=== PATIENT | female | born 1975 | race African-American/Black ===

== ENCOUNTER 2017-05-19 22:43 | Emergency (ER) | payer OTHER, SELFPAY ==
[2017-05-19 23:04] LABS: #Basophils 0.2 thou/uL (0.0-0.2); #Eosinphils 0.1 thou/uL (0.0-0.7); #Lymphocytes 2.8 thou/uL (1.20-3.40); #Monocytes 0.3 thou/uL (0.11-0.59); #Neutrophils 5.5 thou/uL (1.40-6.50); %Basophils 2.2 % (0.0-1.0); %Eosinophils 1.6 % (0.0-10.0); %Lymphocytes 30.8 % (21.0-51.0); %Monocytes 3.7 % (0.0-10.0); Hematocrit 37.2 % (36.0-47.0); Mean Platelet Volume 8.6 fL (7.4-10.4); Red Blood Cell (RBC) Count 4.26 mill/uL (4.20-5.40); White Blood Cell (WBC) Count 8.9 thou/uL (4.8-10.8)
[2017-05-19] MEDS ORDERED: methylPREDNISolone Sod Succ/PF 125 MG/2 ML VIAL ONE (23:06)
[2017-05-19] MEDS ORDERED: diphenhydrAMINE 50 MG/ML VIAL ONE (23:06)
[2017-05-19] MEDS ORDERED: Ketorolac Tromethamine 30 MG/ML VIAL ONE (23:06)
[2017-05-19] MEDS ORDERED: Metoclopramide HCl 10 MG/2 ML VIAL ONE (23:06)
[2017-05-19] MEDS ORDERED: Water For Inject, Bacteriostat 30 ML ONE (23:06)
[2017-05-19 23:18] LABS: ALT (SGPT) 11 U/L (8-55); AST (SGOT) 12 U/L (5-34); Alkaline Phosphatase 108 U/L (40-150); Anion Gap 13 mmol/L (10-20); BUN (Urea Nitrogen) 6 mg/dL (7.0-18.7); Bilirubin, Total 0.1 mg/dL (0.2-1.2); Calc. Creatinine Clearance 0 mL/min (70-130); Calcium 9.7 mg/dL (7.8-10.44); Carbon Dioxide 23 mmol/L (22-29); Chloride 106 mmol/L (98-107); Estimated GFR-MDRD 82; Globulin 4.1 g/dL (2.4-3.5)
[2017-05-19 23:25] LABS: Troponin I Less than 0.010 ng/mL (< 0.028)
== END 2017-05-20 00:30 | disposition home or self-care (01) ==
LOC: SCSER 22:43
DX: R51 Headache (principal); I10 Essential (primary) hypertension; E11.9 Type 2 diabetes mellitus without complications; E78.5 Hyperlipidemia, unspecified; F17.210 Nicotine dependence, cigarettes, uncomplicated; Z79.84 Long term (current) use of oral hypoglycemic drugs; Z79.82 Long term (current) use of aspirin; Z79.899 Other long term (current) drug therapy
CPT/HCPCS: 80053; 82553; 84484; 85025; 93005; 96365; 96375; J1200; J1885; J2765; J2930

== ENCOUNTER 2017-09-22 20:26 | Emergency (ER) | payer OTHER, SELFPAY ==
[2017-09-22 20:48] LABS: Bilirubin Small (Negative); Blood, Urine Trace (Negative); Clarity Cloudy (Clear); Glucose, Urine (Dipstick) Negative (Negative); Leukocyte Small (Negative); Nitrite Negative (Negative); Protein, Urine (Dipstick) 30 mg/dL (Neg-Trace); Specific Gravity, Urine 1.029 (1.002-1.036); pH, Urine 5.5 (5.0-9.0)
[2017-09-22 20:52] LABS: RBC/HPF 0-3 HPF (0-3)
[2017-09-22 20:53] LABS: Bacteria/HPF 2+ HPF (None Seen); Hyaline Casts/LPF 0-3 HYALINE CAST LPF (0-3 Hyaline); Other Casts/LPF 0-3 WBC CASTS LPF (0-3 Hyaline); Yeast-All Forms Rare HPF (None Seen)
== END 2017-09-22 22:00 | disposition home or self-care (01) ==
LOC: SCSER 20:26
DX: O20.0 Threatened abortion (principal); O09.511 Supervision of elderly primigravida, first trimester; O10.911 Unspecified pre-existing hypertension complicating pregnancy, first trimester; O24.111 Pre-existing type 2 diabetes mellitus, in pregnancy, first trimester; O99.331 Smoking (tobacco) complicating pregnancy, first trimester; O99.281 Endocrine, nutritional and metabolic diseases complicating pregnancy, first trimester; O99.341 Other mental disorders complicating pregnancy, first trimester; F32.9 Major depressive disorder, single episode, unspecified; Z79.84 Long term (current) use of oral hypoglycemic drugs; Z3A.01 Less than 8 weeks gestation of pregnancy; Z79.899 Other long term (current) drug therapy; Z79.82 Long term (current) use of aspirin
CPT/HCPCS: 36415; 81003; 81015; 84702; 86900; 86901; 99284

== ENCOUNTER 2017-09-28 08:06 | Emergency (ER) | payer OTHER ==
[2017-09-28 08:31] LABS: #Eosinphils 0.1 thou/uL (0.0-0.7); #Lymphocytes 2.8 thou/uL (1.20-3.40); #Monocytes 0.4 thou/uL (0.11-0.59); #Neutrophils 3.4 thou/uL (1.40-6.50); %Basophils 0.4 % (0.0-1.0); %Eosinophils 1.6 % (0.0-10.0); %Lymphocytes 41.8 % (21.0-51.0); %Monocytes 5.6 % (0.0-10.0); %Neutrophils 50.6 % (42.0-75.0); Hemoglobin 11.3 g/dL (12.0-16.0); Mean Corpuscular HGB CONC 31.5 g/dL (32.0-36.0); Mean Corpuscular Hemoglobin 26.2 pg (27.0-31.0); Mean Platelet Volume 8.5 fL (7.4-10.4); Platelet Count 266 thou/uL (130-400); RBC Distribution Width 17.6 % (11.5-14.5); Red Blood Cell (RBC) Count 4.32 mill/uL (4.20-5.40); White Blood Cell (WBC) Count 6.8 thou/uL (4.8-10.8)
--- NOTE | 2017-09-28 09:58 | ULT ---
TRANSVAGINAL PELVIC ULTRASOUND WITH WILLIAM SCALE AND COLOR FLOW AND SPECTRAL DOPPLER: Date: 09/28/17 HISTORY: Heavy vaginal bleeding. Patient thinks she is . HCG levels pending. FINDINGS: The uterus measures 10.6 x 4.9 x 4.5 cm without focal mass or endometrial fluid. Endometrium measures 6.0 mm in thickness. No intrauterine gestational sac is seen. A nabothian cyst is present in the cer vix. The right ovary measures 2.5 x 1.4 x 1.5 cm. The left ovary measures 3.0 x 2.5 x 2.0 cm. No adnexal m ass or free fluid is seen. There is flow demonstrated to the left ovary. IMPRESSION: No sonographic evidence of intrauterine gestation. Correlate with serial serum beta HCG and follow-up ultrasound would be helpful. POS: OFF
== END 2017-09-28 09:52 | disposition home or self-care (01) ==
LOC: ERS 08:06
DX: O20.0 Threatened abortion (principal); O09.521 Supervision of elderly multigravida, first trimester; O99.281 Endocrine, nutritional and metabolic diseases complicating pregnancy, first trimester; E78.5 Hyperlipidemia, unspecified; O16.1 Unspecified maternal hypertension, first trimester; O99.341 Other mental disorders complicating pregnancy, first trimester; F32.9 Major depressive disorder, single episode, unspecified; O99.331 Smoking (tobacco) complicating pregnancy, first trimester; F17.210 Nicotine dependence, cigarettes, uncomplicated; O24.111 Pre-existing type 2 diabetes mellitus, in pregnancy, first trimester; E11.9 Type 2 diabetes mellitus without complications; Z3A.01 Less than 8 weeks gestation of pregnancy
CPT/HCPCS: 36415; 76856; 84702; 85025

== ENCOUNTER 2017-11-24 08:19 | Emergency (ER) | payer OTHER ==
[2017-11-24 08:43] LABS: Bilirubin Small (Negative); Blood, Urine Large (Negative); Clarity TURBID (Clear); Glucose, Urine (Dipstick) Negative (Negative); Leukocyte Small (Negative); Nitrite Negative (Negative); Protein, Urine (Dipstick) 100 mg/dL (Neg-Trace); Specific Gravity, Urine 1.035 (1.002-1.036); pH, Urine 5.5 (5.0-9.0)
[2017-11-24 08:43] LABS: #Basophils 0.1 thou/uL (0.0-0.2); #Eosinphils 0.1 thou/uL (0.0-0.7); #Lymphocytes 2.6 thou/uL (1.20-3.40); #Monocytes 0.2 thou/uL (0.11-0.59); #Neutrophils 2.9 thou/uL (1.40-6.50); %Basophils 1.1 % (0.0-1.0); %Monocytes 3.9 % (0.0-10.0); Hemoglobin 11.9 g/dL (12.0-16.0); Mean Corpuscular HGB CONC 31.7 g/dL (32.0-36.0); Mean Corpuscular Hemoglobin 27.2 pg (27.0-31.0); Mean Corpuscular Volume 85.5 fl (81.0-99.0); Mean Platelet Volume 8.8 fL (7.4-10.4); Platelet Count 266 thou/uL (130-400); RBC Distribution Width 16.8 % (11.5-14.5); Red Blood Cell (RBC) Count 4.39 mill/uL (4.20-5.40); White Blood Cell (WBC) Count 5.9 thou/uL (4.8-10.8)
[2017-11-24 08:44] LABS: Pregnancy Test - Urine (BHCG) Negative (Negative); Pregu Control Background? CLEAR/WHITE (CLR/WHITE); Pregu Control Bar Appear? YES (CONTROL BAR); Specific Gravity 1.035 (1.002-1.036)
[2017-11-24 08:45] LABS: Bacteria/HPF Rare-Few HPF (None Seen); RBC/HPF GREATER THAN 50-TNTC HPF (0-3)
[2017-11-24 08:57] LABS: Pathc Cast-AUWi Flag 6.97 (0-2.49)
[2017-11-24 09:01] LABS: Hyaline Casts/LPF 0-3 HYALINE CAST LPF (0-3 Hyaline); Other Casts/LPF None Seen LPF (0-3 Hyaline)
[2017-11-24 09:09] LABS: ALT (SGPT) 7 U/L (8-55); AST (SGOT) 13 U/L (5-34); Albumin 3.8 g/dL (3.5-5.0); Alkaline Phosphatase 95 U/L (40-150); Anion Gap 10 mmol/L (10-20); BUN (Urea Nitrogen) 6 mg/dL (7.0-18.7); Bilirubin, Total 0.2 mg/dL (0.2-1.2); Calc. Creatinine Clearance 0 mL/min (70-130); Carbon Dioxide 23 mmol/L (22-29); Chloride 109 mmol/L (98-107); Estimated GFR-MDRD Greater than 90; Globulin 3.6 g/dL (2.4-3.5); Glucose 112 mg/dL (70-105); Lipase 28 U/L (8-78); Potassium 3.6 mmol/L (3.5-5.1); Protein, Total 7.4 g/dL (6.0-8.3); Sodium 138 mmol/L (136-145)
[2017-11-24] MEDS ORDERED: Ketorolac Tromethamine 60 MG/2 ML VIAL ONE (10:28)
[2017-11-27 21:55] LABS: Chlamydia by PCR Not Detected (NotDetected); GC by PCR Not Detected (NotDetected)
== END 2017-11-24 11:30 | disposition home or self-care (01) ==
LOC: ERS 08:19
DX: N39.0 Urinary tract infection, site not specified (principal); E11.9 Type 2 diabetes mellitus without complications; E78.5 Hyperlipidemia, unspecified; I10 Essential (primary) hypertension; F17.210 Nicotine dependence, cigarettes, uncomplicated; Z79.84 Long term (current) use of oral hypoglycemic drugs; Z79.899 Other long term (current) drug therapy
CPT/HCPCS: 36415; 80053; 81003; 81015; 81025; 83690; 85025; 87086; 87480; 87491; 87510; 87591; 87660; J1885

== ENCOUNTER 2017-11-25 03:59 | Emergency (ER) | payer OTHER ==
[2017-11-25] MEDS ORDERED: cefTRIAXone\\ROCEPHIN 1 GM VIAL ONE (04:39)
[2017-11-25] MEDS ORDERED: Sodium Chloride 0.9% 100 ML ONE (04:39)
[2017-11-25 04:57] LABS: ALT (SGPT) 7 U/L (8-55); AST (SGOT) 12 U/L (5-34); Albumin 3.8 g/dL (3.5-5.0); Alkaline Phosphatase 103 U/L (40-150); Anion Gap 11 mmol/L (10-20); BUN (Urea Nitrogen) 9 mg/dL (7.0-18.7); Bilirubin, Total 0.2 mg/dL (0.2-1.2); Calc. Creatinine Clearance 0 mL/min (70-130); Carbon Dioxide 23 mmol/L (22-29); Chloride 110 mmol/L (98-107); Estimated GFR-MDRD 81; Globulin 3.6 g/dL (2.4-3.5); Glucose 114 mg/dL (70-105); Potassium 3.9 mmol/L (3.5-5.1); Protein, Total 7.4 g/dL (6.0-8.3); Sodium 140 mmol/L (136-145)
[2017-11-25 05:12] LABS: #Basophils 0.1 thou/uL (0.0-0.2); #Eosinphils 0.2 thou/uL (0.0-0.7); #Lymphocytes 3.3 thou/uL (1.20-3.40); #Monocytes 0.3 thou/uL (0.11-0.59); %Basophils 0.9 % (0.0-1.0); %Eosinophils 2.5 % (0.0-10.0); %Lymphocytes 41.5 % (21.0-51.0); %Monocytes 4.1 % (0.0-10.0); Hemoglobin 12.2 g/dL (12.0-16.0); Mean Corpuscular HGB CONC 31.9 g/dL (32.0-36.0); Mean Corpuscular Hemoglobin 27.5 pg (27.0-31.0); Mean Corpuscular Volume 86.4 fl (81.0-99.0); Platelet Count 277 thou/uL (130-400); RBC Distribution Width 16.9 % (11.5-14.5); Red Blood Cell (RBC) Count 4.43 mill/uL (4.20-5.40); White Blood Cell (WBC) Count 7.9 thou/uL (4.8-10.8)
[2017-11-25] MEDS ORDERED: Azithromycin 500 MG VIAL ONE (05:32)
[2017-11-25 05:34] LABS: Bilirubin Negative (Negative); Blood, Urine Negative (Negative); Clarity CLEAR (Clear); Glucose, Urine (Dipstick) Negative (Negative); Leukocyte Negative (Negative); Nitrite Negative (Negative); Protein, Urine (Dipstick) Negative (Neg-Trace); Urobilinogen 0.2 mg/dL (0.2-1.0); pH, Urine 5.5 (5.0-9.0)
[2017-11-25 05:38] LABS: Specific Gravity, Urine Greater than 1.060 (1.002-1.036)
--- NOTE | 2017-11-25 07:36 | CT ---
PRELIMINARY REPORT/[facility]/EMERGENCY AFTER HOURS PROCEDURE: EXAM: CT Abdomen and Pelvis With Intravenous Contrast EXAM DATE/TIME: Exam ordered 11/25/2017 4:38 AM CLINICAL HISTORY: 42 years old, female; Pain; Abdominal pain; Localized; Lower; Patient HX: , F42 presents to ed C/O pe lvic pain. Pt seen in ed yesterday for similar pain. Dx uti at that time. Pt reports pain is now wors e. Pain radiates to her back. Denies fever, . No other complaints. TECHNIQUE: Axial computed tomography images of the abdomen and pelvis with intravenous contrast. Coronal reforma tted images were created and reviewed. COMPARISON: No relevant prior studies available. FINDINGS: Lung bases: Unremarkable. No mass. No consolidation. ABDOMEN: Liver: Unremarkable. No mass. Gallbladder and bile ducts: Unremarkable. No calcified stones. No ductal dilation. Pancreas: Unremarkable. No mass. No ductal dilation. Spleen: Unremarkable. No splenomegaly. Adrenals: Unremarkable. No mass. Kidneys and ureters: Unremarkable. No solid mass. No hydronephrosis. Stomach and bowel: No bowel wall thickening or intestinal obstruction. PELVIS: Appendix: Normal appendix. Bladder: Unremarkable. No mass. Reproductive: Unremarkable as visualized. ABDOMEN and PELVIS: Intraperitoneal space: Unremarkable. No free air. No significant fluid collection. Bones/joints: No acute fracture. No dislocation. Soft tissues: Unremarkable. Vasculature: Unremarkable. No abdominal aortic aneurysm. Lymph nodes: Unremarkable. No enlarged lymph nodes. IMPRESSION: No acute findings. Thank you for allowing us to participate in the care of your patient. Dictated and Authenticated by: Clay Atkins MD 11/25/2017 5:20 AM Central Time ([place] & [place]) FINAL REPORT EMERGENCY AFTER HOURS ABDOMEN AND PELVIC CT SCAN WITH IV CONTRAST: Date: 11/25/17 Time: 0439 hours FINDINGS/IMPRESSION: Too small to characterize right lower pole hypodensity, probably a small renal cyst. No significant a cute process in the abdomen or pelvis. Report in agreement with preliminary report given on-call by Tiffanie. POS: VIKI
[2017-11-25] MEDS ORDERED: ISOVUE-370 76%-LOCM 1 ML ONE (18:34)
== END 2017-11-25 06:57 | disposition home or self-care (01) ==
LOC: ERS 03:59
DX: N39.0 Urinary tract infection, site not specified (principal); E11.9 Type 2 diabetes mellitus without complications; E78.5 Hyperlipidemia, unspecified; I10 Essential (primary) hypertension; F32.9 Major depressive disorder, single episode, unspecified; F17.210 Nicotine dependence, cigarettes, uncomplicated; Z79.899 Other long term (current) drug therapy; Z79.84 Long term (current) use of oral hypoglycemic drugs
CPT/HCPCS: 36415; 51701; 74177; 80053; 81003; 81015; 81025; 83690; 85025; 87086; 87480; 87491; 87510; 87591; 87660; 96365; 96367; 96372; A4353; J0456; J0696; J1885; J7050

== ENCOUNTER 2017-11-29 14:53 | Emergency (ER) | payer OTHER ==
--- NOTE | 2017-11-29 16:02 | CT ---
CT CERVICAL SPINE NONCONTRAST: 11/29/17 HISTORY: Neck injury. COMPARISON: 10/27/11. FINDINGS: Vertebral body heights are maintained. There is reversal of the normal lordotic curvature on the sagi ttal reformatted images. Osteophytosis is prominent throughout the vertebral bodies and, to a lesser extent, within the facets. No acute fracture or dislocation. Cervicothoracic junction is intact. IMPRESSION: Degenerative changes cervical spine are pronounced for the patient's age. No acute osseous abnormalit ies are demonstrated. POS: VIKI
== END 2017-11-29 16:33 | disposition home or self-care (01) ==
LOC: ERS 14:53
DX: M25.511 Pain in right shoulder (principal); E11.9 Type 2 diabetes mellitus without complications; E78.5 Hyperlipidemia, unspecified; I10 Essential (primary) hypertension; F32.9 Major depressive disorder, single episode, unspecified; F17.210 Nicotine dependence, cigarettes, uncomplicated
CPT/HCPCS: 72125

== ENCOUNTER 2017-12-05 12:44 | Emergency (ER) | payer OTHER ==
[2017-12-05] MEDS ORDERED: Ketorolac Tromethamine 60 MG/2 ML VIAL ONE (13:19)
== END 2017-12-05 13:00 | disposition home or self-care (01) ==
LOC: ERS 12:44
DX: M25.511 Pain in right shoulder (principal); E11.9 Type 2 diabetes mellitus without complications; E78.5 Hyperlipidemia, unspecified; I10 Essential (primary) hypertension; F17.210 Nicotine dependence, cigarettes, uncomplicated; Z79.899 Other long term (current) drug therapy; Z79.84 Long term (current) use of oral hypoglycemic drugs
CPT/HCPCS: 96372; J1885

== ENCOUNTER 2018-05-11 08:50 | Emergency (ER) | payer OTHER ==
[2018-05-11 09:28] LABS: Bilirubin Negative (Negative); Blood, Urine Negative (Negative); Clarity TURBID (Clear); Glucose, Urine (Dipstick) Negative (Negative); Leukocyte Negative (Negative); Nitrite Negative (Negative); Protein, Urine (Dipstick) Negative (Neg-Trace); Specific Gravity, Urine 1.027 (1.002-1.036); Urobilinogen 0.2 mg/dL (0.2-1.0); pH, Urine 5.5 (5.0-9.0)
--- NOTE | 2018-05-11 11:36 | ULT ---
TRANSABDOMINAL AND TRANSVAGINAL PELVIC ULTRASOUND WITH WILLIAM SCALE AND COLOR FLOW AND SPECTRAL DOPPLER IMAGING: Date: 05/11/18 HISTORY: Pelvic pain. Positive test. FINDINGS: The uterus measures 9.9 x 5.1 x 5.5 cm. The endometrium measures 1.3 cm in thickness. No intrauterine gestational sac is seen. A 1.2 cm cyst is seen in the cervix. The right ovary measures 1.9 x 3.7 x 1.8 cm. The left ovary measures 1.9 x 2.4 x 1.8 cm. Flow is demo nstrated to both ovaries. There is a small amount of free fluid in the pelvis. There is a 7.0 mm hypoechoic area in the myometrium, likely a fibroid. IMPRESSION: No evidence of intrauterine gestation. Recommend correlation with serial serum beta HCG levels and fo llow-up ultrasound. POS: VIKI
== END 2018-05-11 11:38 | disposition home or self-care (01) ==
LOC: ERS 08:50
DX: O99.89 Other specified diseases and conditions complicating pregnancy, childbirth and the puerperium (principal); M54.5 Low back pain; O24.911 Unspecified diabetes mellitus in pregnancy, first trimester; O99.331 Smoking (tobacco) complicating pregnancy, first trimester; F17.210 Nicotine dependence, cigarettes, uncomplicated
CPT/HCPCS: 36415; 76856; 81003; 84702

== ENCOUNTER 2018-05-17 14:03 | Emergency (ER) | payer OTHER ==
[2018-05-17 14:24] LABS: Bilirubin Small (Negative); Blood, Urine Negative (Negative); Clarity Slightly Cloudy (Clear); Glucose, Urine (Dipstick) Negative (Negative); Leukocyte Negative (Negative); Nitrite Negative (Negative); Protein, Urine (Dipstick) Trace mg/dL (Neg-Trace); Specific Gravity, Urine 1.015 (1.005-1.030); pH, Urine Greater/Equal 9.0 (5.0-9.0)
[2018-05-17] MEDS ORDERED: Acetaminophen 500 MG TAB ONE (14:28)
== END 2018-05-17 15:11 | disposition home or self-care (01) ==
LOC: SCSER 14:03
DX: O99.89 Other specified diseases and conditions complicating pregnancy, childbirth and the puerperium (principal); R10.2 Pelvic and perineal pain; M54.6 Pain in thoracic spine; E78.5 Hyperlipidemia, unspecified; I10 Essential (primary) hypertension; F17.210 Nicotine dependence, cigarettes, uncomplicated; Z79.84 Long term (current) use of oral hypoglycemic drugs
CPT/HCPCS: 36415; 81003; 84702; 99284

== ENCOUNTER 2018-05-18 23:06 | Emergency (ER) | payer OTHER ==
[2018-05-18 23:43] LABS: Bilirubin Negative (Negative); Blood, Urine Negative (Negative); Clarity CLOUDY (Clear); Glucose, Urine (Dipstick) Negative (Negative); Leukocyte Negative (Negative); Nitrite Negative (Negative); Protein, Urine (Dipstick) Negative (Neg-Trace); Specific Gravity, Urine 1.014 (1.002-1.036)
[2018-05-18] MEDS ORDERED: Acetaminophen 500 MG TAB ONE (23:51)
[2018-05-19 00:15] LABS: #Basophils 0.1 thou/uL (0.0-0.2); #Eosinphils 0.1 thou/uL (0.0-0.7); #Monocytes 0.4 thou/uL (0.11-0.59); %Basophils 0.6 % (0.0-1.0); %Eosinophils 1.4 % (0.0-10.0); %Lymphocytes 34.7 % (21.0-51.0); %Monocytes 4.4 % (0.0-10.0); %Neutrophils 58.9 % (42.0-75.0); Hemoglobin 11.9 g/dL (12.0-16.0); Mean Corpuscular HGB CONC 32.5 g/dL (32.0-36.0); Mean Corpuscular Hemoglobin 28.2 pg (27.0-31.0); Mean Corpuscular Volume 86.5 fL (78.0-98.0); Mean Platelet Volume 8.9 fL (7.4-10.4); Platelet Count 264 thou/uL (130-400); RBC Distribution Width 17.5 % (11.5-14.5); Red Blood Cell (RBC) Count 4.23 mill/uL (4.20-5.40); White Blood Cell (WBC) Count 8.5 thou/uL (4.8-10.8)
[2018-05-19 00:31] LABS: BHCG - Serum POSITIVE (NEGATIVE); Pregs Control Background? CLEAR/WHITE (CLR/WHITE); Pregs Control Bar Appear? YES (CONTROL BAR)
--- NOTE | 2018-05-19 08:15 | CON ---
DATE OF CONSULTATION: 05/19/2018 CONSULTING PHYSICIAN: Juan Guerra M.D. CHIEF COMPLAINT: Right-sided abdominal pain over the last 24 hours. HISTORY OF PRESENT ILLNESS: Ms. Martínez is a 43-year-old black G3, P0, AB2 with an uncertain last menstrual period, who presents complaining of right-sided abdominal discomfort over the last 24 hours. She denies bleeding or nausea or vomiting. Patient states that she did have 1 visit approximately a week ago at [facility] and was known to be at that time. She is uncertain regarding her last menstrual period. PAST OBSTETRICAL HISTORY: Includes 2 early spontaneous miscarriages, neither of which required D and C. PAST MEDICAL HISTORY: Diabetes and hypertension. CURRENT MEDICATIONS: Metformin 500 mg b.i.d. and an unknown blood pressure medication which she does not know the name of. PAST SURGICAL HISTORY: Includes a LEEP. ALLERGIES: No known allergies. SOCIAL HISTORY: She smokes 1 pack of cigarettes per day. She denies drugs or alcohol use. FAMILY HISTORY: Unremarkable. REVIEW OF SYSTEMS: Positive for abdominal pain. She denies nausea, vomiting, fever, chills, shortness of breath. PHYSICAL EXAMINATION: VITAL SIGNS: Stable in ER. Her blood pressure while I was in her ER room was 130s/80s with a pulse in the 80s. ABDOMEN: Soft and flat. There is no guarding or rebound. PELVIC EXAMINATION: No vaginal bleeding seen. Bimanual exam is not performed. LABORATORY DATA: Hemoglobin and hematocrit 11.9 and 36 respectively, platelet count 264,000. Quantitative beta hCG is 6721. Ultrasound demonstrates a gestational sac in the extreme right cornual aspect of the uterus demonstrating crown rump length that correlates with 6 weeks 4 days and has a heart rate of 113 beats per minute. I did discuss this with Dr. Clay Atkins and he did agree that this was most concerning for a cornual ectopic. ASSESSMENT AND PLAN: Suspected cornual ectopic . PLAN: I explained in detail the nature of a cornual ectopic . I did ask to admit her and had an exploratory procedure planned in the morning to review the nature of this ectopic. The patient refused to sign the consent form , as she was desirous of a second opinion. She understands that there is no way to obtain a second opinion at [facility]. I urged her to stay and allow me to treat her, but unfortunately, she would not sign the consent form and she signed the AMA form and left the ER. She left the hospital with the full understanding that a cornual ectopic , if it ruptures, can be a life threatening event. ALMA
--- NOTE | 2018-05-19 15:48 | ULT ---
PRELIMINARY REPORT/[facility]/EMERGENTY AFTER-HOURS PROCEDURE Addendum created by Clay Atkins MD on 05/19/2018 1:07 AM Central Time ([place] & [place]) Findings discussed with TOI KLEIN MD and OB attending physician at time of interpretation. Initi al Report created on 05/19/2018 1:00 AM Central Time ([place] & [place]) US , Transvaginal EXAM DATE/TIME: 05/18/2018 11:58 PM CLINICAL HISTORY: 43 years old, female; Pain; Other: Back pain; Gestational age or lmp: 5-6wks; TECHNIQUE: Real-time transvaginal obstetrical ultrasound of the maternal pelvis and a first trimester with image documentation. Transvaginal imaging was used for better evaluation of the fetus and adnexa . COMPARISON: No relevant prior studies available. FINDINGS: Other findings: Ovaries are normal with normal Doppler signal. GESTATION: Gestation: At the extreme right cornual aspect of the uterus, there is a suboptimally visualized comp thelma structure which has the appearance of a gestational sac containing a pole. Pillow-rump lengt h correlates with estimated gestational age of 6 weeks 4 days. heart rate of 113 beats per teena te obtained while interrogating the pole. The appearance is most compatible with an interstitia l ectopic . Heart rate: See Gestation Finding. BIOMETRY: Estimated gestational age: See Gestation Finding. MATERNAL: Uterus: Normal endometrial stripe thickness. Intraperitoneal: Physiologic amount of free fluid in the pelvis. IMPRESSION: At the extreme right cornual aspect of the uterus, there is a suboptimally visualized complex structu re which has the appearance of a gestational sac containing a pole. Pillow-rump length correlate s with estimated gestational age of 6 weeks 4 days. heart rate of 113 beats per minute obtained while interrogating the pole. The appearance is very concerning for an interstitial ectopic pr egnancy. Thank you for allowing us to participate in the care of your patient. Dictated and Authenticated by: Clay Atkins MD 05/19/2018 1:00 AM Central Time ([place] & [place]) PELVIC ULTRASOUND INCLUDING TRANSVAGINAL AND VASCULAR DUPLEX WITH COLOR AND SPECTRAL DOPPLER IMAGING: EMERGENCY AFTER HOURS EXAM TIME: 12:20 a.m. DATE: 05/19/2018. FINDINGS: There is ectopic in the cornua region of the uterus with crown-rump length corresponding to 6 weeks 4 days as well as a heart rate of 113 b.p.m., evidence for an interstitial ectopic pre gnancy. No evidence for ovarian torsion. POS: VIKI
== END 2018-05-19 02:05 | disposition left against medical advice (07) ==
LOC: ERS 23:06
DX: O00.80 Other ectopic pregnancy without intrauterine pregnancy (principal); E11.9 Type 2 diabetes mellitus without complications; E78.5 Hyperlipidemia, unspecified; I10 Essential (primary) hypertension; F17.210 Nicotine dependence, cigarettes, uncomplicated; Z3A.01 Less than 8 weeks gestation of pregnancy
CPT/HCPCS: 76856; 81003; 84702; 84703; 85025

== ENCOUNTER 2018-05-19 09:07 | Inpatient (IN) | payer OTHER ==
[2018-05-19 10:12] LABS: #Basophils 0.1 thou/uL (0.0-0.2); #Eosinphils 0.1 thou/uL (0.0-0.7); #Lymphocytes 2.7 thou/uL (1.20-3.40); #Monocytes 0.3 thou/uL (0.11-0.59); #Neutrophils 4.7 thou/uL (1.40-6.50); %Basophils 1.4 % (0.0-1.0); %Eosinophils 1.6 % (0.0-10.0); %Lymphocytes 33.6 % (21.0-51.0); %Monocytes 4.1 % (0.0-10.0); %Neutrophils 59.3 % (42.0-75.0); Hemoglobin 11.7 g/dL (12.0-16.0); Mean Corpuscular HGB CONC 32.2 g/dL (32.0-36.0); Mean Corpuscular Volume 86.9 fL (78.0-98.0); Mean Platelet Volume 8.6 fL (7.4-10.4); Platelet Count 251 thou/uL (130-400); RBC Distribution Width 17.5 % (11.5-14.5); White Blood Cell (WBC) Count 7.9 thou/uL (4.8-10.8)
[2018-05-19] MEDS ORDERED: CEFAZOLIN 1 GM in Sodium Chloride 0.9% 100 ML IVPB SCH (10:30)
[2018-05-19 10:36] LABS: ALT (SGPT) 17 U/L (8-55); AST (SGOT) 14 U/L (5-34); Albumin 3.8 g/dL (3.5-5.0); Alkaline Phosphatase 83 U/L (40-150); Anion Gap 11 mmol/L (10-20); BUN (Urea Nitrogen) 4 mg/dL (7.0-18.7); Bilirubin, Total 0.3 mg/dL (0.2-1.2); Calc. Creatinine Clearance 0 mL/min (70-130); Calcium 9.1 mg/dL (7.8-10.44); Carbon Dioxide 21 mmol/L (22-29); Chloride 108 mmol/L (98-107); Estimated GFR-MDRD Greater than 90; Globulin 3.6 g/dL (2.4-3.5); Glucose 108 mg/dL (70-105); Potassium 4.1 mmol/L (3.5-5.1); Protein, Total 7.4 g/dL (6.0-8.3); Sodium 136 mmol/L (136-145)
--- NOTE | 2018-05-19 10:44 | HP ---
DATE OF SERVICE: 05/19/2018 TIME OF EVALUATION: 9:55 until 10:19. LOCATION: ER. BED: 20. REASON FOR EVALUATION: Suspected right cornual ectopic . This is a patient who was seen last night, but who left AMA and has returned this morning for surgica l management. HISTORY OF PRESENT ILLNESS: In brief, this patient is a 43-year-old -Latvian G3, P0, SAB 2 w ith no prior D and C history, who was seen last night for pelvic pain and was diagnosed with a suspec sydni right cornual ectopic that was approximately 6 weeks and 4 days by crown-rump length wi th heart tones present. This patient was given informed consent for a possible mini laparotomy last night with Dr. Guerra, but the patient left AMA because she was concerned that she would get a hysterectomy as primary treatment. She arrives now for surgical management of this condition as she has talked to her family members who have urged surgical care. The patient states that she initially was evaluated for pelvic pain and has had some on and off spotting and light bleeding, but no clots. She denies fevers. She has no prior ectopic history. REVIEW OF SYSTEMS: Complete review of systems were checked and is otherwise negative unless specifie d in the HPI. PAST MEDICAL HISTORY: Significant for; 1. Diabetes mellitus on oral Metformin 500 mg p.o. b.i.d. 2. Chronic hypertension on labetalol 100 mg 1 p.o. b.i.d. ALLERGIES: None. PAST SURGICAL HISTORY: Includes a left knee surgery and a cervical LEEP. PHYSICAL EXAMINATION: VITAL SIGNS: Pulse is 90, blood pressure is 155/90. GENERAL: Clinically, she is in no acute distress. ABDOMEN: Nondistended. There is no rebound, but there is discomfort on deep palpation. PELVIC: Deferred. IMAGING DATA: Ultrasound from last night evaluation shows a right suspected cornual ectopic pregnanc y about 6-7 week size with heart tones. Dr. Guerra discussed the ultrasound findings with the radiologist yesterday and was concerning for a cornual location as it was outside of the endometrial cavity. LABORATORY DATA: Hematocrit value was 36.6 and a beta hCG is 6700. ASSESSMENT AND PLAN: This is a 43-year-old G3, P0, SAB2 suspected cornual ectopic 1, who has positiv e heart tones by ultrasound. She is here for surgical management. PLAN: 1. I have discussed with the patient surgical therapy as either laparoscopic or laparotomy approach. As she has heart tones present, as she is 6 weeks, and due to the location, I have recommended mini laparotomy instead of laparoscopy as this is a potential risk for intraoperative bleeding. 2. I did discuss with her that while laparoscopic approach may be attempted, there is a higher rate of conversion to laparotomy and a higher rate of persistent ectopic , requiring subsequent m edication. 3. The patient agrees to mini laparotomy for this procedure. 4. I have given the patient informed consent on possible wedge resection of the uterus as well as po ssible hysterectomy if bleeding is not controlled. 5. I have also called the OR and they are aware of the patient and we are planning to go to the OR a t around noon after general surgery finishes with their urgent case. 6. Type and cross for 2 units. 7. We will inject Pitressin into the myometrial area to try to prevent blood loss at time of uterine cornual resection/evacuation. 8. Informed consent given and patient is aware.
[2018-05-19] MEDS ORDERED: Ondansetron PF 4 MG/2 ML Vial ONE (11:21)
[2018-05-19] MEDS ORDERED: Succinylcholine Chloride 20 MG/ML 10 ml SYRINGE FS ONE (11:21)
[2018-05-19] MEDS ORDERED: Ketorolac Tromethamine 30 MG/ML VIAL ONE (11:21)
[2018-05-19] MEDS ORDERED: Lidocaine 1% PF 5 ML VIAL ONE (11:21)
[2018-05-19] MEDS ORDERED: PROPOFOL 200 MG/20 ML VIAL ONE (11:21)
[2018-05-19] MEDS ORDERED: Dexamethasone 20 MG/5 ML VIAL ONE (11:21)
[2018-05-19] MEDS ORDERED: Glycopyrrolate 0.2 MG/ML 5 ML SYRINGE ONE (11:21)
--- NOTE | 2018-05-19 11:31 | PDOC.EVN ---
Event Note - Event Note Event Note: Glucose at 108 by CMP
[2018-05-19] MEDS ORDERED: Fentanyl 100 MCG/2 ML VIAL ONE (12:26)
[2018-05-19] MEDS ORDERED: HYDROmorphone 2 MG/ML VIAL ONE ×2 (12:26→13:57)
[2018-05-19] MEDS ORDERED: Oxytocin 10 UNITS/ML VIAL ONE (12:46)
[2018-05-19] MEDS ORDERED: Bupivacaine 0.25% HCL 30 ML VIAL ONE (13:31)
[2018-05-19] MEDS ORDERED: Promethazine HCl 25 MG/ML VIAL IM PRN ×2 (13:38→13:45)
[2018-05-19] MEDS ORDERED: Acetaminophen/Codeine 30-300mg Tablet PO PRN (13:38)
[2018-05-19] MEDS ORDERED: Ondansetron HCl/PF 4 MG/2 ML Vial IVP PRN (13:45)
[2018-05-19] MEDS ORDERED: HYDROmorphone 2 MG/ML VIAL SLOW IVP PRN (13:45)
[2018-05-19] MEDS ORDERED: Promethazine HCl 25 MG/ML VIAL SLOW IVP PRN (13:45)
[2018-05-19] MEDS ORDERED: PACU-Morphine 4MG/ML VIAL SLOW IVP PRN (13:45)
--- NOTE | 2018-05-19 13:50 | PDOC.EVN ---
Event Note - Event Note Event Note: S/P mini-laparotomy with right cornual resection. See dictation Follow DSticks ...hold on metformin until taking po
--- NOTE | 2018-05-19 14:07 | OP ---
OPERATIVE NOTE DATE OF PROCEDURE: 05/19/2018 PREOPERATIVE DIAGNOSIS: Suspected right ectopic /cornual location. POSTOPERATIVE DIAGNOSIS: Suspected right ectopic /cornual location/ confirmed right cornual non-ruptured ectopic. PROCEDURES: 1. Mini laparotomy with a medium Jaquan retractor. 2. Right cornual wedge resection. SURGEON: Von Menendez M.D. ASSISTANTS: 1. Monica Araya. 2. Binta Joyner (MS3). ANESTHESIA: General. ANTIBIOTICS: Ancef 1 gram IV preincision. ESTIMATED BLOOD LOSS: Less than or equal to 20 mL IV FLUIDS: About 1100 mL crystalloid. URINE OUTPUT: Clear urine by Grover. COMPLICATIONS: None. COUNTS: Correct. PATHOLOGY: The wedge resected products of conception. FINDINGS: 1. Upon entry into the abdominal pelvic cavity, there was no peritoneal ascites or hemoperitoneum. 2. On inspection of the right uterine horn, there was a superficial non- ruptured 3 x 2 cm right cornual ectopic. 3. Hemostasis post-procedure. DISPOSITION: To recovery room in good and stable condition. TECHNIQUE: After proper informed consent was explained to the patient, she was taken to the [facility] where she was placed under general endotracheal anesthesia, the patient's abdomen was prepped and draped in the usual sterile fashion. A mini Pfannenstiel skin incision was made with the scalpel and Bovie cautery was used to dissect the subcutaneous tissue down to the level of the fascia. Fascia was identified, cleaned off of any overlying fat and entered in a transverse fashion using Bovie cautery on cut mode. Rectus muscles were off the fascia in the midline, both superiorly and inferiorly. Rectus muscles were away from the midline. Underlying peritoneum was entered by blunt dissection and the findings were as noted. The Jaquan retractor (medium) was placed into the wound for site visualization. Attention was turned to the patient's right cornua where the ectopic was noted. We then injected about 10 mL of dilute Pitressin (20 units in 250 mL saline) circumferentially around this non-ruptured ectopic mass. A 5 mL was injected on the right side of the mass and 5 mL on the left side of the mass. Using the scalpel, we then performed a wedge resection of the right uterine horn. Hemostasis was confirmed. The proximal portion of the tube was also included in this removal. The proximal tubal stump was then suture ligated and obliterated in a [id number] suture that included the uterine horn. The defect was closed in a myomectomy style closure using 2-0 Vicryl in a deep layer closure to start, finishing with a serosal secondary layer. Only 2 layers were required for closure. No bleeding was noted. Once again, the deep layers of the myometrium was closed first and then the superficial and serosal layers were closed second. At the completion of the procedure, all counts were correct. The retractor was removed from the abdominal pelvic cavity. The fascia was closed with 0 Vicryl in the usual running nonlocking stitch. One suture was used for closure. Subcutaneous tissue was then copiously irrigated and closed with 3-0 plain gut for 3 interrupted sutures. Skin was closed with 4 -0 Vicryl in a subcuticular running stitch. Dermabond was placed over the incision as a liquid adhesive barrier. No complications were noted. ALMA
[2018-05-19] MEDS: Ibuprofen 800 MG TAB PO SCH ×2 (15:40→22:46)
[2018-05-19] MEDS: Lactated Ringer's 1,000 ML IV SCH ×2 (15:44→18:43)
[2018-05-19 15:47] VITALS: BMI 29.5
[2018-05-19] MEDS: Acetaminophen/Codeine 30-300mg Tablet PO PRN ×2 (16:13→20:09)
--- NOTE | 2018-05-19 16:25 | PRG ---
DATE OF SERVICE: 05/19/2018 TIME OF EVALUATION: 15:55 until 16:04. LOCATION: [address] [place] [address]. POSTOP BED CHECK: Patient in room 315. SUBJECTIVE: In brief, the patient just arrived to [address] [place] [address] and is doing well from recovery. I di d hold her metformin and her labetalol for monitoring today. The patient did receive Decadron for na usea per Anesthesia perioperatively. Last blood sugar which was on arrival to [address] [place] [address] was betwee n 140-150. Patient was written for consistent carbohydrate regular diet as tolerated. I discussed t he surgery with the patient who is still somewhat sedated. Patient's mother and father were also in the room and questions answered. I instructed her to have followup in 1 week at [facility] with Dr. Araya who was surgical technology instructor. If Dr. Araya is not available, any [employer] phys ician/provider for followup is recommended. Incision is Dermabond closed and no need for staple iman kathy. I have placed Motrin 600 mg 1 p.o. q.6 hours p.r.n. #20 prescription in the chart as well as pr escription for Tylenol #3 to dispense #10 with no refills. We will follow the patient today and foll ow blood sugars as well. We will likely send the patient home tomorrow as our bowel manipulation was minimal. Blood loss was approximately 20 mL or less intraop.
[2018-05-20] MEDS: Lactated Ringer's 1,000 ML IV SCH ×2 (02:30→11:15)
[2018-05-20] MEDS: Acetaminophen/Codeine 30-300mg Tablet PO PRN ×2 (04:15→10:06)
[2018-05-20 06:10] LABS: Hemoglobin 10.6 g/dL (12.0-16.0); Mean Corpuscular HGB CONC 31.5 g/dL (32.0-36.0); Mean Corpuscular Hemoglobin 27.4 pg (27.0-31.0); Mean Corpuscular Volume 86.9 fL (78.0-98.0); Mean Platelet Volume 8.8 fL (7.4-10.4); Platelet Count 245 thou/uL (130-400); RBC Distribution Width 17.5 % (11.5-14.5); Red Blood Cell (RBC) Count 3.86 mill/uL (4.20-5.40); White Blood Cell (WBC) Count 12.8 thou/uL (4.8-10.8)
[2018-05-20] MEDS: Ibuprofen 800 MG TAB PO SCH (06:30)
--- NOTE | 2018-05-20 06:46 | PDOC.EVN ---
Event Note - Event Note Event Note: HD 2 POSTOP Day 1 S. Doing well. wants to stay until tomorrow O. No abd bloating but still with some incisional pain Abdominal exam benign...incision C/D/I Sutured A/P: POSTOP Day 1, doing well...DM, CHTN 1. Advance ADA diet 2, Restart Metformin 500 BIB 3. restart labetolol 100 BIB 4. Continue Accuchecks Prob [facility] tomorrow AM
[2018-05-20] MEDS ORDERED: metFORMIN 500 MG TAB PO SCH (08:00)
[2018-05-20] MEDS ORDERED: Labetalol 100 MG TAB PO SCH (09:00)
[2018-05-20 11:43] VITALS: BP 134/63; TEMP 98.1
--- NOTE | 2018-05-20 22:17 | DIS ---
DATE OF ADMISSION: 05/19/2018 DATE OF DISCHARGE: 05/20/2018 ADMITTING DIAGNOSIS: Right ectopic cornual . DISCHARGE DIAGNOSIS: Right ectopic cornual . PRIMARY PROCEDURE: Right cornual wedge resection with laparotomy. SUMMARY OF HOSPITAL COURSE: The patient underwent the aforementioned procedure. She had normal estela l signs throughout the postoperative period. Her hematocrit was stable postoperative day #1 dropping from 36.5-33.5 percent. She was tolerating p.o. Clear lungs. Good bowel sounds. Incision is inta ct and dry. She will be discharged home on Tylenol #3 and ibuprofen. She will continue her labetalo l and metformin which she took preoperatively and follow up at [facility] [place] or at [facility].
== END 2018-05-20 13:51 | disposition home or self-care (01) | DRG 819 ==
LOC: ERS 09:07 → SDC 13:34 → 3SE 14:57
PROVIDERS: ADMIT Obstetrics & Gynecology; ATTEND Obstetrics & Gynecology
PROC: 10T20ZZ Resection of Products of Conception, Ectopic, Open Approach (ICD-10-PCS; principal; 2018-05-19)
PROC: 0UB50ZZ Excision of Right Fallopian Tube, Open Approach (ICD-10-PCS; 2018-05-19)
DX: O00.80 Other ectopic pregnancy without intrauterine pregnancy (principal); E11.9 Type 2 diabetes mellitus without complications; I10 Essential (primary) hypertension; Z79.84 Long term (current) use of oral hypoglycemic drugs
CPT/HCPCS: 36415; 36416; 76856; 80053; 81003; 84702; 84703; 85025; 85027; 86850; 86900; 86901; 88305; 99284; 99285; J1100; J1170; J1885; J2001; J2405; J2550; J2590; J2704; J3010; S0020

== ENCOUNTER 2018-05-22 09:27 | Emergency (ER) | payer OTHER ==
[2018-05-22 10:17] LABS: Bilirubin Negative (Negative); Blood, Urine Large (Negative); Glucose, Urine (Dipstick) Negative (Negative); Protein, Urine (Dipstick) > or equal to 300 mg/dL (Neg-Trace)
[2018-05-22 10:22] LABS: Clarity Opaque (Clear); Leukocyte Small (Negative); Nitrite Unable to Interpret (Negative); Urobilinogen UNABLE TO INTERPRET mg/dL (0.2-1.0)
[2018-05-22 10:23] LABS: #Eosinphils 0.2 thou/uL (0.0-0.7); #Lymphocytes 3.2 thou/uL (1.20-3.40); #Monocytes 0.3 thou/uL (0.11-0.59); %Basophils 0.5 % (0.0-1.0); %Eosinophils 2.4 % (0.0-10.0); %Lymphocytes 41.3 % (21.0-51.0); %Monocytes 4.1 % (0.0-10.0); %Neutrophils 51.7 % (42.0-75.0); Mean Corpuscular HGB CONC 31.8 g/dL (32.0-36.0); Mean Corpuscular Volume 88.2 fL (78.0-98.0); Mean Platelet Volume 8.6 fL (7.4-10.4); Platelet Count 260 thou/uL (130-400); RBC Distribution Width 17.8 % (11.5-14.5); Red Blood Cell (RBC) Count 3.94 mill/uL (4.20-5.40); White Blood Cell (WBC) Count 7.7 thou/uL (4.8-10.8)
[2018-05-22 10:34] LABS: RBC/HPF GREATER THAN 50-TNTC HPF (0-3)
[2018-05-22 10:36] LABS: Bacteria/HPF None Seen HPF (None Seen); Hyaline Casts/LPF NONE SEEN LPF (0-3 Hyaline); WBC/HPF 0-3 HPF (0-3)
[2018-05-22 10:36] LABS: ALT (SGPT) 14 U/L (8-55); AST (SGOT) 13 U/L (5-34); Albumin 3.4 g/dL (3.5-5.0); Alkaline Phosphatase 76 U/L (40-150); Anion Gap 11 mmol/L (10-20); BUN (Urea Nitrogen) 7 mg/dL (7.0-18.7); Bilirubin, Total Less than 0.2 mg/dL (0.2-1.2); Calc. Creatinine Clearance 0 mL/min (70-130); Calcium 9.2 mg/dL (7.8-10.44); Carbon Dioxide 26 mmol/L (22-29); Chloride 109 mmol/L (98-107); Estimated GFR-MDRD Greater than 90; Globulin 3.5 g/dL (2.4-3.5); Glucose 109 mg/dL (70-105); Potassium 3.9 mmol/L (3.5-5.1); Protein, Total 6.9 g/dL (6.0-8.3); Sodium 142 mmol/L (136-145)
--- NOTE | 2018-05-22 14:33 | ER ---
DATE OF SERVICE: 05/22/2018 ER physician making consultation, Dr. Quezada. CHIEF COMPLAINT: Vaginal bleeding. HISTORY OF PRESENT ILLNESS: The patient is a 43-year-old, who is now postoperative day #3, status post minilaparotomy and right salpingectomy with excision of the isthmic and interstitial portion of the tube. The patient returned to the emergency room this morning after experiencing some quarter-sized blood clots when she woke up. The patient called her provider and was given instructions to come to the emergency room. The patient reports that she has changed two pads today over the course of the morning and reports that her bleeding has slowed since this morning. She does have some cramping, but she also denies any significant change, worsening of her pain. The patient denies fevers. Denies incision drainage. PAST MEDICAL HISTORY: Diabetes and chronic hypertension. REVIEW OF SYSTEMS: Per HPI. Otherwise, noted negative. PHYSICAL EXAMINATION: VITAL SIGNS: Blood pressure 156/75, pulse of 81, respiratory rate of 20. GENERAL: She appears to be in no acute distress. She is alert, oriented, cooperative, pleasant, and interactive. HEENT: Head, normocephalic and atraumatic. HEART: Regular rate and rhythm. LUNGS: Clear to auscultation bilaterally. ABDOMEN: Soft, appropriately tender. Incision is clean, dry, and intact. Her current pad, which she has had for about an hour and half just had some staining in about 50% of it. LABORATORY DATA: Postoperative hemoglobin and hematocrit of 11.0 and 34.7, which are stable from the time of her discharge yesterday or day before, at which time, her hemoglobin was 10.6 and hematocrit was 33.5. ASSESSMENT AND PLAN: The patient is a 43-year-old female, who is postoperative day #3, status post minilaparotomy and right tubal resection for an ectopic . The patient has no signs or symptoms or any complications of this . She is likely having a withdrawal bleed from lack of hormonal support of the endometrium, which I described and discussed with the patient. The patient has been given reassurance and given precautions when to return to the emergency room. She does have followup appointment scheduled with her primary team, the family medicine residency program in one week. The patient has been counseled to return if she experiences heavy bleeding, where she is saturating a pad an hour or more, if her pain is worsening, if she has incision redness or drainage, or developed fever of 101 or greater. The patient has expressed understanding and has been discharged home. She was given 10 Tylenol No. 3 at the time of discharge from her surgery which she had completely used. I will be giving her 10 more for her to take in conjunction with ibuprofen. Job ID: [id number]
== END 2018-05-22 13:57 | disposition home or self-care (01) ==
LOC: ERS 09:27
DX: O08.1 Delayed or excessive hemorrhage following ectopic and molar pregnancy (principal); G89.18 Other acute postprocedural pain; R10.30 Lower abdominal pain, unspecified; E11.9 Type 2 diabetes mellitus without complications; E78.5 Hyperlipidemia, unspecified; I10 Essential (primary) hypertension; F17.210 Nicotine dependence, cigarettes, uncomplicated; Z79.84 Long term (current) use of oral hypoglycemic drugs; Z79.899 Other long term (current) drug therapy
CPT/HCPCS: 36415; 80053; 81003; 81015; 85025; 86850; 86900; 86901; 99284

== ENCOUNTER 2018-12-28 16:45 | Inpatient (IN) | payer OTHER ==
[~2018-12-28 16:45] MED LIST: Heparin 10,000 UNITS/1 ML VIAL ONE; Iopamidol 370 76% 100 ML VIAL ONE; Iopamidol 370 76% 50 ML VIAL FS ONE; Nitroglycerin 0.4 MG TAB (25 Tab Bottle) ONE; Sodium Chloride 0.9% Irrigation 1000 ML BOT ONE
[2018-12-28] MEDS ORDERED: Lidocaine 1% (PF) 30 ML VIAL ONE (17:01)
[2018-12-28 17:10] LABS: Hemoglobin 12.3 g/dL (12.0-16.0); Mean Corpuscular HGB CONC 32.1 g/dL (32.0-36.0); Mean Corpuscular Hemoglobin 26.7 pg (27.0-31.0); Mean Corpuscular Volume 83.2 fL (78.0-98.0); Mean Platelet Volume 8.5 fL (7.4-10.4); Platelet Count 348 thou/uL (130-400); RBC Distribution Width 16.2 % (11.5-14.5); Red Blood Cell (RBC) Count 4.59 mill/uL (4.20-5.40); White Blood Cell (WBC) Count 10.2 thou/uL (4.8-10.8)
--- NOTE | 2018-12-28 17:10 | RAD ---
Exam: Chest one view HISTORY:Chest pain Comparison: None FINDINGS: Cardiac silhouette: Normal Pulmonary vessels: Normal Costophrenic angles: Clear LUNGS: Focal right midlung opacity may be due to atelectasis, pneumonia or aspiration. Pneumothorax: None Osseous abnormalities: None IMPRESSION: Focal right mid lung opacity, as described above. Continued surveillance to ensure resolu tion.
[2018-12-28 17:16] LABS: PTT 23.7 SEC (22.9-36.1)
[2018-12-28] MEDS ORDERED: Atropine Sulfate 1 mg/10 ml Syringe ONE (17:29)
[2018-12-28 17:30] LABS: Anisocytosis SLIGHT = 6-15 cells (100X) (0-5/hpf); Band 5 % (5-11); Lymphocytes 37 % (21-51); MDiff Complete? YES; Monocytes 4 % (0-10); Neutrophil 54 % (42-75); Platelet Morphology Comment Appears Adequate
[2018-12-28 17:33] LABS: ALT (SGPT) 21 U/L (8-55); AST (SGOT) 21 U/L (5-34); Albumin 3.9 g/dL (3.5-5.0); Alkaline Phosphatase 109 U/L (40-150); Anion Gap 18 mmol/L (10-20); BUN (Urea Nitrogen) 9 mg/dL (7.0-18.7); Bilirubin, Total 0.3 mg/dL (0.2-1.2); Calc. Creatinine Clearance 0 mL/min (70-130); Calcium 10.2 mg/dL (7.8-10.44); Carbon Dioxide 22 mmol/L (22-29); Chloride 97 mmol/L (98-107); Estimated GFR-MDRD 88; Globulin 5.1 g/dL (2.4-3.5); Glucose 162 mg/dL (70-105); Lipase 38 U/L (8-78); Potassium 3.5 mmol/L (3.5-5.1); Sodium 133 mmol/L (136-145)
[2018-12-28] MEDS ORDERED: Heparin 10,000 UNITS/1 ML VIAL ONE (17:43)
[2018-12-28] MEDS ORDERED: Nitroglycerin 4.9 GM Bottle ONE (17:47)
[2018-12-28] MEDS ORDERED: Nitroglycerin 100MG/250ML BOT 250 ML ONE (17:47)
[2018-12-28] MEDS ORDERED: Mag-Al 1200 mg/1200 mg/30 ML UDCUP PO PRN (19:24)
[2018-12-28] MEDS ORDERED: Acetaminophen/Codeine 30-300mg Tablet PO PRN (19:24)
[2018-12-28] MEDS ORDERED: cloNIDine 0.1 MG TAB PO PRN (19:46)
[2018-12-28] MEDS ORDERED: Lisinopril 2.5 MG TAB PO SCH (20:00)
[2018-12-28] MEDS ORDERED: Aspirin 81 mg Enteric Coated Tablet PO SCH (20:00)
[2018-12-28 20:26] VITALS: BMI 29.2
--- NOTE | 2018-12-28 21:15 | HP ---
REASON FOR ADMISSION: Acute myocardial infarction. HISTORY OF PRESENT ILLNESS: Ms. Araceli Martínez is a 43-year-old woman with a history of hypertension and diabetes. The patient presented to the emergency room with severe chest pain, found to be having acute myocardial infarction. I was notified and we took her to the cardiac catheterization laboratory. The patient does have a history of diabetes, type 2. She said she has known about 2 or 3 years. Also has a history of hypertension. She was uncertain of her medicine initially. Also has history of smoking. ALLERGIES: NONE KNOWN. REVIEW OF SYSTEMS: CONSTITUTIONAL: No significant weight gain or loss. VISION: No changes. HEARING: No changes. PULMONARY: She is short of breath. CARDIAC: Positive for chest pain, severe. GASTROINTESTINAL: No nausea, vomiting, or diarrhea. SKIN: No rashes. NEUROLOGIC: No unilateral weakness or numbness. PSYCHIATRIC: No unusual depression or anxiety. She did receive fentanyl in the ambulance is being brought here when she is somewhat sleepy, but still alert and oriented. PHYSICAL EXAMINATION: GENERAL: Ill-appearing, middle-aged woman, in no respiratory distress, but very uncomfortable with the chest pain. VITAL SIGNS: Blood pressure is 140/80, pulse 80 and sinus. HEENT: Eyes; sclerae are nonicteric. Mouth, mucous membranes moist. NECK: Supple. No lymphadenopathy. LUNGS: Clear. No wheezing, rales, or rhonchi. CARDIAC: Normal S1, normal S2. There is no murmur, rub, or gallop. ABDOMEN: Soft and nontender. No hepatosplenomegaly. EXTREMITIES: Warm and dry. No clubbing or cyanosis. There is no edema. DIAGNOSTIC STUDIES: EKG did show inferior ST-elevation in II, III and aVF as well as V5 and V6. ASSESSMENT: 1. Acute ST-elevation myocardial infarction. 2. Diabetes. 3. History of hypertension. 4. History of smoking. PLAN: Quickly obtained informed consent as best as possible. She did receive some fentanyl, but she did understand. Discussed risks of the procedure in view of the continued chest pain with ST elevation, appropriate to proceed without further delay. She did understand the risks. She understood this is a life-threatening problem and wished to proceed. She understands that her best option was to proceed emergently to the cardiac catheterization lab. I did review the record quickly prior to the procedure. There was a history of a positive test in April 2018. I asked if there is any possibility even remotely that she be now, she said absolutely not, and we proceeded with the procedure. There was no time to delay with further testing. I did explain to her that the stent implantation and catheterization would require large amount of x-rays. Job ID: [id number]
[2018-12-28] MEDS: TICAGRELOR 90 MG TABLET PO SCH (21:31)
[2018-12-28] MEDS: Atorvastatin Calcium 40 MG TAB PO SCH (21:31)
[2018-12-28] MEDS ORDERED: Fentanyl 100 MCG/2 ML VIAL ONE (21:56)
[2018-12-28] MEDS ORDERED: Sodium Chloride 0.9% 1,000 ML IV SCH (22:00)
[2018-12-28] MEDS ORDERED: Aggrastat 12.5 MG/250 ML 250 ML IVPB SCH (22:00)
[2018-12-28] MEDS ORDERED: Dextrose 50% Abboject 50 ML SYRINGE IVP PRN (22:02)
[2018-12-28] MEDS ORDERED: Insulin Regular 300 UNITS/3 ML VIAL SC PRN (22:02)
[2018-12-28] MEDS ORDERED: Dextrose 5% in Water 1,000 ML IV PRN (22:02)
[2018-12-28] MEDS ORDERED: Fentanyl 100 MCG/2 ML VIAL SLOW IVP PRN (22:04)
[2018-12-28] MEDS ORDERED: Atorvastatin Calcium 40 MG TAB PO SCH (22:15)
[2018-12-28 22:24] LABS: #Monocytes 0.5 thou/uL (0.11-0.59); #Neutrophils 7.2 thou/uL (1.40-6.50); %Basophils 0.5 % (0.0-1.0); %Eosinophils 0.1 % (0.0-10.0); %Lymphocytes 20.8 % (21.0-51.0); %Monocytes 4.7 % (0.0-10.0); Hemoglobin 10.3 g/dL (12.0-16.0); Mean Corpuscular HGB CONC 32.2 g/dL (32.0-36.0); Mean Corpuscular Hemoglobin 26.8 pg (27.0-31.0); Mean Corpuscular Volume 83.2 fL (78.0-98.0); Mean Platelet Volume 8.4 fL (7.4-10.4); Platelet Count 321 thou/uL (130-400); RBC Distribution Width 15.9 % (11.5-14.5); Red Blood Cell (RBC) Count 3.85 mill/uL (4.20-5.40); White Blood Cell (WBC) Count 9.7 thou/uL (4.8-10.8)
[2018-12-28 23:16] LABS: CKMB 48.2 ng/mL (0-6.6)
[2018-12-28] MEDS: ALPRAZolam 0.25 MG TAB PO PRN (23:40)
[2018-12-29] MEDS ORDERED: Sodium Chloride 0.9% 1,000 ML IV SCH (02:00)
[2018-12-29 04:35] LABS: #Monocytes 0.5 thou/uL (0.11-0.59); #Neutrophils 5.4 thou/uL (1.40-6.50); %Basophils 0.3 % (0.0-1.0); %Eosinophils 0.3 % (0.0-10.0); %Monocytes 6.5 % (0.0-10.0); %Neutrophils 67.9 % (42.0-75.0); Hemoglobin 10.8 g/dL (12.0-16.0); Mean Corpuscular HGB CONC 31.5 g/dL (32.0-36.0); Mean Corpuscular Hemoglobin 26.7 pg (27.0-31.0); Mean Corpuscular Volume 84.6 fL (78.0-98.0); Mean Platelet Volume 8.2 fL (7.4-10.4); Platelet Count 294 thou/uL (130-400); RBC Distribution Width 16.2 % (11.5-14.5); Red Blood Cell (RBC) Count 4.03 mill/uL (4.20-5.40); White Blood Cell (WBC) Count 7.9 thou/uL (4.8-10.8)
[2018-12-29 04:53] LABS: ALT (SGPT) 22 U/L (8-55); AST (SGOT) 75 U/L (5-34); Albumin 3.2 g/dL (3.5-5.0); Alkaline Phosphatase 88 U/L (40-150); Anion Gap 9 mmol/L (10-20); BUN (Urea Nitrogen) 5 mg/dL (7.0-18.7); Bilirubin, Total 0.2 mg/dL (0.2-1.2); Calc. Creatinine Clearance 128 mL/min (70-130); Calcium 9.3 mg/dL (7.8-10.44); Carbon Dioxide 25 mmol/L (22-29); Chloride 105 mmol/L (98-107); Cholesterol 181 mg/dl (< 200 Desired); Estimated GFR-MDRD Greater than 90; Globulin 3.7 g/dL (2.4-3.5); Glucose 113 mg/dL (70-105); HDL Cholesterol 30 mg/dL (>60 Neg Risk); LDL Cholesterol, Calculated 131 mg/dL; Protein, Total 6.9 g/dL (6.0-8.3); Sodium 136 mmol/L (136-145); Triglycerides 98 mg/dL (Less than 150)
[2018-12-29 05:21] LABS: CKMB 171.6 ng/mL (0-6.6)
[2018-12-29] MEDS ORDERED: Fentanyl 100 MCG/2 ML VIAL SLOW IVP PRN (07:42)
[2018-12-29] MEDS ORDERED: Carvedilol 3.125 MG TAB PO SCH ×3 (08:00→21:00)
[2018-12-29] MEDS ORDERED: Potassium Chloride 20 MEQ TAB PO SCH ×2 (08:00→12:00)
[2018-12-29] MEDS: Carvedilol 6.25 MG TAB PO SCH ×2 (08:40→16:45)
[2018-12-29] MEDS: Lisinopril 2.5 MG TAB PO SCH (08:40)
[2018-12-29] MEDS: Aspirin 81 mg Enteric Coated Tablet PO SCH (08:41)
[2018-12-29] MEDS: TICAGRELOR 90 MG TABLET PO SCH ×2 (08:41→20:47)
[2018-12-29] MEDS ORDERED: Lisinopril 2.5 MG TAB PO SCH ×2 (09:00)
[2018-12-29] MEDS: Atorvastatin Calcium 40 MG TAB PO SCH (20:47)
[2018-12-29] MEDS ORDERED: Atorvastatin Calcium 40 MG TAB PO SCH (21:00)
[2018-12-30 05:06] LABS: Anion Gap 10 mmol/L (10-20); BUN (Urea Nitrogen) 6 mg/dL (7.0-18.7); Calc. Creatinine Clearance 110 mL/min (70-130); Calcium 8.7 mg/dL (7.8-10.44); Carbon Dioxide 28 mmol/L (22-29); Chloride 103 mmol/L (98-107); Estimated GFR-MDRD Greater than 90; Glucose 95 mg/dL (70-105); Potassium 3.4 mmol/L (3.5-5.1); Sodium 138 mmol/L (136-145)
[2018-12-30] MEDS: Lisinopril 2.5 MG TAB PO SCH (08:52)
[2018-12-30] MEDS: Carvedilol 6.25 MG TAB PO SCH ×2 (08:53→17:01)
[2018-12-30] MEDS: TICAGRELOR 90 MG TABLET PO SCH ×2 (08:53→21:13)
[2018-12-30] MEDS: Aspirin 81 mg Enteric Coated Tablet PO SCH (08:53)
[2018-12-30] MEDS ORDERED: Atorvastatin Calcium 20 MG TAB PO SCH (21:00)
[2018-12-30] MEDS: traMADol HCl 50 MG TAB PO PRN (23:26)
[2018-12-31] MEDS: Aspirin 81 mg Enteric Coated Tablet PO SCH (08:02)
[2018-12-31] MEDS: TICAGRELOR 90 MG TABLET PO SCH ×2 (08:02→20:46)
[2018-12-31] MEDS: traMADol HCl 50 MG TAB PO PRN (08:02)
[2018-12-31] MEDS: Carvedilol 6.25 MG TAB PO SCH ×2 (08:52→17:00)
[2018-12-31] MEDS: ALPRAZolam 0.25 MG TAB PO PRN (08:52)
[2018-12-31] MEDS ORDERED: Mag-Al 1200 mg/1200 mg/30 ML UDCUP PO PRN (09:00)
[2018-12-31] MEDS ORDERED: Lisinopril 5 MG TAB PO SCH ×2 (09:00→12:00)
[2018-12-31] MEDS ORDERED: Communication Order-Pharmacy FS SCH (11:30)
[2018-12-31] MEDS ORDERED: Lidocaine 1% (PF) 30 ML VIAL ONE (11:40)
[2018-12-31] MEDS ORDERED: Midazolam HCl 2 mg/2 ml Vial ONE (12:36)
[2018-12-31] MEDS ORDERED: Nitroglycerin 100MG/250ML BOT 250 ML ONE (12:47)
[2018-12-31] MEDS ORDERED: Nitroglycerin 4.9 GM Bottle ONE (12:53)
[2018-12-31] MEDS ORDERED: Nitroglycerin 2% Ointment 1 INCH/1 GM Packet ONE (13:00)
[2018-12-31] MEDS ORDERED: Nitroglycerin 0.4 MG TAB (25 Tab Bottle) SL PRN (13:02)
[2018-12-31] MEDS ORDERED: Acetaminophen/Codeine 30-300mg Tablet PO PRN ×2 (13:02)
[2018-12-31] MEDS ORDERED: Sodium Chloride 0.9% 200 ML IV PRN (13:02)
[2018-12-31] MEDS ORDERED: Iopamidol 370 76% 100 ML VIAL ONE (13:38)
[2018-12-31] MEDS ORDERED: Atorvastatin Calcium 10 MG TAB PO SCH (21:00)
[2019-01-01 07:17] VITALS: TEMP 97.7
[2019-01-01] MEDS ORDERED: Clopidogrel Bisulfate 300 MG TAB PO SCH (08:30)
[2019-01-01 09:02] VITALS: BP 132/61
[2019-01-01] MEDS: Aspirin 81 mg Enteric Coated Tablet PO SCH (09:02)
[2019-01-01] MEDS: Carvedilol 6.25 MG TAB PO SCH (09:02)
--- NOTE | 2019-01-01 11:12 | DIS ---
DATE OF ADMISSION: 12/28/2018 DATE OF DISCHARGE: 01/01/2019 DISCHARGE DIAGNOSES: 1. Acute myocardial infarction. 2. Coronary artery disease. 3. Hypertension. 4. Diabetes mellitus. 5. Tobacco abuse. HISTORY: The patient is a 43-year-old woman, who presented with acute onset of chest discomfort. The patient was noted to have marked ST elevation. The patient was taken directly to the cardiac catheterization laboratory. HOSPITAL COURSE: The patient underwent a cardiac catheterization. She was found to have severe proximal LAD lesion. The patient subsequently underwent PTCA and stent placement. The patient was treated with aspirin and Brilinta. The patient continued to have chest pain during her hospitalization. She underwent a repeat cardiac catheterization on 12/31/2018. The patient was found to have a widely patent stent. During the hospitalization, the patient's peak troponin level was 20.4. The patient is discharged. The patient was noted also to have a mild decrease in left ventricular systolic function. She was started on Coreg and lisinopril. The patient is discharged in stable condition. DISCHARGE MEDICATIONS: Include; 1. Plavix 75 daily. 2. Aspirin 81 daily. 3. Lisinopril 5 mg daily. 4. Lipitor 40 at bedtime. 5. one tablet p.o. t.i.d. p.r.n. Job ID: [id number]
--- NOTE | 2019-01-01 17:08 | EKG ---
Test Reason : Blood Pressure : / mmHG Vent. Rate : 072 BPM Atrial Rate : 072 BPM P-R Int : 148 ms QRS Dur : 082 ms QT Int : 456 ms P-R-T Axes : 063 -80 -66 degrees QTc Int : 499 ms Normal sinus rhythm with sinus arrhythmia Left axis deviation Inferior infarct , age undetermined T wave abnormality, consider anterolateral ischemia Abnormal ECG Confirmed by JOY JUAN ([id number]) on 01/01/2019 5:07:42 PM Referred By: DRAKE Confirmed By:JOY JUAN
== END 2019-01-01 10:30 | disposition home or self-care (01) | DRG 247 ==
LOC: ERS 16:45 → CCU 17:00 → ERS 17:17 → 2NO 12-30 18:28
PROVIDERS: ADMIT Internal Medicine Cardiovascular Disease; ATTEND Internal Medicine Cardiovascular Disease
PROC: 027035Z Dilation of Coronary Artery, One Artery with Two Drug-eluting Intraluminal Devices, Percutaneous Approach (ICD-10-PCS; principal; 2018-12-28)
PROC: 4A023N7 Measurement of Cardiac Sampling and Pressure, Left Heart, Percutaneous Approach (ICD-10-PCS; 2018-12-28)
PROC: B2111ZZ Fluoroscopy of Multiple Coronary Arteries using Low Osmolar Contrast (ICD-10-PCS; 2018-12-28)
PROC: 4A023N7 Measurement of Cardiac Sampling and Pressure, Left Heart, Percutaneous Approach (ICD-10-PCS; 2018-12-31)
PROC: B2111ZZ Fluoroscopy of Multiple Coronary Arteries using Low Osmolar Contrast (ICD-10-PCS; 2018-12-31)
DX: I21.3 ST elevation (STEMI) myocardial infarction of unspecified site (principal); I25.10 Atherosclerotic heart disease of native coronary artery without angina pectoris; E11.9 Type 2 diabetes mellitus without complications; I10 Essential (primary) hypertension; E78.5 Hyperlipidemia, unspecified; F17.210 Nicotine dependence, cigarettes, uncomplicated
CPT/HCPCS: 36415; 36416; 71045; 76942; 80048; 80053; 80061; 82553; 83690; 83735; 84484; 85025; 85347; 85610; 85730; 92928; 92977; 93005; 93010; 93458; 93798; 94760; 96374; 96376; 99152; 99153; C1769; C1874; C1887; C9600; J0461; J1644; J2001; J2250; J3010; Q9967

== ENCOUNTER 2019-01-03 01:08 | Emergency (ER) | payer OTHER ==
[2019-01-03 01:32] LABS: #Eosinphils 0.1 thou/uL (0.0-0.7); #Lymphocytes 2.5 thou/uL (1.20-3.40); #Monocytes 0.4 thou/uL (0.11-0.59); #Neutrophils 6.1 thou/uL (1.40-6.50); %Basophils 0.1 % (0.0-1.0); %Eosinophils 1.3 % (0.0-10.0); %Lymphocytes 27.5 % (21.0-51.0); %Monocytes 4.1 % (0.0-10.0); Hemoglobin 10.2 g/dL (12.0-16.0); Mean Corpuscular HGB CONC 30.9 g/dL (32.0-36.0); Mean Corpuscular Hemoglobin 26.2 pg (27.0-31.0); Mean Corpuscular Volume 84.8 fL (78.0-98.0); Mean Platelet Volume 8.7 fL (7.4-10.4); Platelet Count 287 thou/uL (130-400); RBC Distribution Width 16.4 % (11.5-14.5); Red Blood Cell (RBC) Count 3.89 mill/uL (4.20-5.40)
[2019-01-03 01:55] LABS: ALT (SGPT) 14 U/L (8-55); AST (SGOT) 15 U/L (5-34); Albumin 3.5 g/dL (3.5-5.0); Alkaline Phosphatase 101 U/L (40-150); Anion Gap 10 mmol/L (10-20); BUN (Urea Nitrogen) 8 mg/dL (7.0-18.7); Bilirubin, Total 0.2 mg/dL (0.2-1.2); Calc. Creatinine Clearance 0 mL/min (70-130); Calcium 9.4 mg/dL (7.8-10.44); Carbon Dioxide 24 mmol/L (22-29); Chloride 109 mmol/L (98-107); Estimated GFR-MDRD 86; Globulin 3.8 g/dL (2.4-3.5); Glucose 126 mg/dL (70-105); Potassium 3.3 mmol/L (3.5-5.1); Protein, Total 7.3 g/dL (6.0-8.3); Sodium 140 mmol/L (136-145)
[2019-01-03 02:19] LABS: CKMB 1.6 ng/mL (0-6.6)
--- NOTE | 2019-01-03 07:50 | RAD ---
CHEST 1 VIEW: Date: 01/03/19 HISTORY: Dyspnea. COMPARISON: 12/28/18. FINDINGS: Cardiaca silhouette is magnified by projection. Pulmonary vasculature is unremarkable. Mediastinum is midline. Focal mass-like infiltrate projecting over the right mid chest overlies the superior segment of right lower lobe and anterior segment of right upper lobe. It is unchanged in appearance from 6 days ago. No lobar consolidation or evidence of pneumothorax. gambling monitor leads overlie the chest. IMPRESSION: Persistent right lung mass-like infiltrate. Close follow-up with chest radiographs and/or CT should b e considered. CODE T. POS: [facility]
== END 2019-01-03 02:25 | disposition home or self-care (01) ==
LOC: ERS 01:08
DX: T82.897A Other specified complication of cardiac prosthetic devices, implants and grafts, initial encounter (principal); M79.604 Pain in right leg; E78.5 Hyperlipidemia, unspecified; I10 Essential (primary) hypertension; F17.210 Nicotine dependence, cigarettes, uncomplicated; E11.9 Type 2 diabetes mellitus without complications; Z79.84 Long term (current) use of oral hypoglycemic drugs
CPT/HCPCS: 71045; 80053; 82553; 84484; 85025; 93005

== ENCOUNTER 2019-01-03 17:38 | Emergency (ER) | payer OTHER ==
[2019-01-03 18:11] LABS: Blood, Urine Large (Negative); Glucose, Urine (Dipstick) Negative (Negative); Leukocyte Negative (Negative); Protein, Urine (Dipstick) > or equal to 300 mg/dL (Neg-Trace)
[2019-01-03 18:14] LABS: Bilirubin Unable to Interpret (Negative); Clarity Opaque (Clear); Nitrite Unable to Interpret (Negative); Urobilinogen UNABLE TO INTERPRET mg/dL (Less than 2)
[2019-01-03 18:30] LABS: RBC/HPF Greater than 50 HPF (0-3); Squamous Epithelial 0-3 HPF (0-3)
[2019-01-03 18:31] LABS: Bacteria/HPF Rare-Few HPF (None Seen)
[2019-01-03 20:04] LABS: #Eosinphils 0.1 thou/uL (0.0-0.7); #Lymphocytes 2.5 thou/uL (1.20-3.40); #Monocytes 0.4 thou/uL (0.11-0.59); #Neutrophils 5.3 thou/uL (1.40-6.50); %Basophils 0.3 % (0.0-1.0); %Eosinophils 1.3 % (0.0-10.0); %Lymphocytes 29.6 % (21.0-51.0); %Monocytes 4.7 % (0.0-10.0); %Neutrophils 64.1 % (42.0-75.0); Hemoglobin 10.7 g/dL (12.0-16.0); Mean Corpuscular HGB CONC 31.1 g/dL (32.0-36.0); Mean Corpuscular Hemoglobin 26.6 pg (27.0-31.0); Mean Corpuscular Volume 85.4 fL (78.0-98.0); Mean Platelet Volume 8.4 fL (7.4-10.4); Platelet Count 289 thou/uL (130-400); RBC Distribution Width 16.1 % (11.5-14.5); Red Blood Cell (RBC) Count 4.03 mill/uL (4.20-5.40); White Blood Cell (WBC) Count 8.3 thou/uL (4.8-10.8)
[2019-01-03 20:28] LABS: ALT (SGPT) 15 U/L (8-55); AST (SGOT) 15 U/L (5-34); Albumin 3.6 g/dL (3.5-5.0); Alkaline Phosphatase 103 U/L (40-150); Anion Gap 12 mmol/L (10-20); BUN (Urea Nitrogen) 6 mg/dL (7.0-18.7); Bilirubin, Total 0.2 mg/dL (0.2-1.2); Calc. Creatinine Clearance 0 mL/min (70-130); Calcium 9.1 mg/dL (7.8-10.44); Carbon Dioxide 22 mmol/L (22-29); Chloride 109 mmol/L (98-107); Estimated GFR-MDRD Greater than 90; Globulin 3.9 g/dL (2.4-3.5); Glucose 103 mg/dL (70-105); Potassium 3.5 mmol/L (3.5-5.1); Protein, Total 7.5 g/dL (6.0-8.3); Sodium 139 mmol/L (136-145)
[2019-01-03] MEDS ORDERED: Ketorolac Tromethamine 30 MG/ML VIAL ONE (20:51)
[2019-01-03] MEDS ORDERED: Ondansetron PF 4 MG/2 ML Vial ONE (20:51)
[2019-01-03 21:13] LABS: Pregnancy Test - Urine (BHCG) Negative (Negative); Pregu Control Background? CLEAR/WHITE (CLR/WHITE); Pregu Control Bar Appear? YES (CONTROL BAR); Specific Gravity 1.025 (1.002-1.036)
--- NOTE | 2019-01-03 21:40 | CT ---
EXAM: Abdomen and pelvic CT scan without contrast: HISTORY: Left flank pain COMPARISON: None FINDINGS: Evaluation is limited by the absence of IV and enteric contrast. The visualized lung bases are clear. Liver: Unremarkable. Gallbladder: Contracted Pancreas: Unremarkable Spleen: Unremarkable. Adrenal glands: Unremarkable. Kidneys: No renal calculus or acute obstruction. Prior hypodensity lower pole right kidney not rel iably visualized by noncontrast CT imaging. Bowel: Incompletely evaluated by technique. Urinary Bladder: The urinary bladder is unremarkable. Adenopathy: Mild prominence of bilateral inguinal lymph nodes. Correlate clinically. Free Air: No free air. Ascites: No ascites. Hypodensity of the right adnexa. Soft tissue edema of the right inguinal region. Osseous structures: No acute osseous abnormalities. IMPRESSION: No urolithiasis or obstructive uropathy. Hypodensity of the right adnexa may relate to ovarian cyst. Recommend follow-up pelvic ultrasound in 6 weeks to confirm resolution. Nonspecific edema of the right inguinal region. There is also mild prominence of bilateral inguinal l ymph nodes. Correlate with physical exam. Evaluation limited by noncontrast technique. Transcribed Date/Time: 01/03/2019 9:47 PM
== END 2019-01-03 21:54 | disposition home or self-care (01) ==
LOC: ERS 17:38
DX: R31.9 Hematuria, unspecified (principal); F17.210 Nicotine dependence, cigarettes, uncomplicated; I10 Essential (primary) hypertension; E11.9 Type 2 diabetes mellitus without complications; E78.5 Hyperlipidemia, unspecified; I25.2 Old myocardial infarction; Z71.6 Tobacco abuse counseling; Z79.84 Long term (current) use of oral hypoglycemic drugs; Z79.82 Long term (current) use of aspirin; Z79.899 Other long term (current) drug therapy
CPT/HCPCS: 36415; 71045; 74176; 80053; 81003; 81015; 81025; 82553; 84484; 85025; 87077; 87086; 87186; 93005; 96361; 96374; 96375; 99406; J1885; J2405

== ENCOUNTER 2019-01-12 01:07 | Observation (INO) | payer OTHER ==
[2019-01-12 01:30] LABS: #Basophils 0.1 thou/uL (0.0-0.2); #Eosinphils 0.1 thou/uL (0.0-0.7); #Lymphocytes 2.5 thou/uL (1.20-3.40); #Monocytes 0.5 thou/uL (0.11-0.59); #Neutrophils 4.6 thou/uL (1.40-6.50); %Eosinophils 1.7 % (0.0-10.0); %Lymphocytes 31.9 % (21.0-51.0); %Monocytes 6.2 % (0.0-10.0); %Neutrophils 59.1 % (42.0-75.0); Hemoglobin 9.5 g/dL (12.0-16.0); Mean Corpuscular HGB CONC 31.9 g/dL (32.0-36.0); Mean Corpuscular Hemoglobin 26.6 pg (27.0-31.0); Mean Corpuscular Volume 83.3 fL (78.0-98.0); Mean Platelet Volume 7.2 fL (7.4-10.4); Platelet Count 343 thou/uL (130-400); RBC Distribution Width 17.2 % (11.5-14.5); Red Blood Cell (RBC) Count 3.58 mill/uL (4.20-5.40); White Blood Cell (WBC) Count 7.7 thou/uL (4.8-10.8)
[2019-01-12] MEDS ORDERED: Aspirin 325 MG TAB ONE (01:31)
[2019-01-12] MEDS ORDERED: Nitroglycerin 0.4 MG TAB (25 Tab Bottle) ONE (01:31)
[2019-01-12] MEDS ORDERED: Aspirin Chewable 81 MG TAB ONE (01:32)
[2019-01-12] MEDS ORDERED: Nitroglycerin 2% Ointment 1 INCH/1 GM Packet ONE (01:51)
[2019-01-12 02:32] LABS: ALT (SGPT) 26 U/L (8-55); AST (SGOT) 18 U/L (5-34); Albumin 3.3 g/dL (3.5-5.0); Alkaline Phosphatase 98 U/L (40-150); Anion Gap 15 mmol/L (10-20); BUN (Urea Nitrogen) 6 mg/dL (7.0-18.7); Bilirubin, Total 0.2 mg/dL (0.2-1.2); Calc. Creatinine Clearance 0 mL/min (70-130); Calcium 9.8 mg/dL (7.8-10.44); Carbon Dioxide 26 mmol/L (22-29); Chloride 102 mmol/L (98-107); Estimated GFR-MDRD Greater than 90; Globulin 4.1 g/dL (2.4-3.5); Glucose 107 mg/dL (70-105); Lipase 54 U/L (8-78); Potassium 3.8 mmol/L (3.5-5.1); Protein, Total 7.4 g/dL (6.0-8.3); Sodium 139 mmol/L (136-145)
[2019-01-12 05:36] VITALS: BMI 29.4
[2019-01-12] MEDS ORDERED: Nicotine 14 MG PATCH TD PRN (05:56)
[2019-01-12] MEDS ORDERED: Ondansetron PF 4 MG/2 ML Vial IVP PRN (05:56)
[2019-01-12] MEDS ORDERED: Ondansetron ODT 4 MG TAB PO PRN (05:56)
[2019-01-12] MEDS ORDERED: Nitroglycerin 0.4 MG TAB (25 Tab Bottle) PO PRN (05:56)
[2019-01-12] MEDS ORDERED: Acetaminophen 325 MG TAB PO PRN (05:56)
--- NOTE | 2019-01-12 06:04 | PDOC.FPRHP ---
- History of Present Illness Chief Complaint: chest pain History of Present Illness: This is a 43 yo AA F who presented to the [facility] with a CC of chest pain. PMH is significant for recent NJ s/p 2 ROBERT placement on 12/28/18 and repeat cath on and discharged on 01/01/19. Her chronic conditions include HTN and DM. The patient's symptoms began around midnight with chest pain that was associated with left jaw and left arm pain. She states the pain is difficult to describe but does not feel like the chest pain she had with her previous NJ. She states this pain is more dull and not sharp. She states that the pain is located in her left chest, does not radiate. She did have some nausea but no vomiting. Endorses some RLE swelling to her right foot recently. Endorses night sweats the past few nights. Denies any fever or chills, SOB. Denies diaphoresis. States nothing exacerbated the pain including exertion or position. States she is able to walk a block or more without getting SOB or chest pain. Nitro did improve her pain some. She states her pain is maybe 3/10 currently, initially 8/ 10. 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 Had stents placed by Dr. Boone. Of note, patient also recently seen on 01/03 for kidney stones and was given tramadol, flomax. She endorses some left sided flank pain which is dull and not as bad as previously. She states she has not passed any stones. She denies any hematuria, burning or irritation with urination. ED Course: 1L NS, nitro patch placed, ASA 324mg, and nitro SL EKG: Left [place]; normal ST segments and T waves - Allergies/Adverse Reactions Allergies Allergy/AdvReac Type Severity Reaction Status Date / Time No Known Allergies Allergy Verified 01/12/19 05:21 - Home Medications Medication Instructions Recorded Confirmed Type Aspirin [Ecotrin Low Strength] 81 mg PO DAILY #100 tab 01/01/19 01/12/19 Rx Atorvastatin Calcium [Lipitor] 40 mg PO HS #30 tab 01/01/19 01/12/19 Rx Carvedilol [Coreg] 6.25 mg PO BID-WM #60 tab 01/01/19 01/12/19 Rx Clopidogrel Bisulfate [Plavix] 75 mg PO DAILY #30 tab 01/01/19 01/12/19 Rx Nitroglycerin [Nitrostat] 0.4 mg SL Q5MIN PRN #1 bot 01/01/19 01/12/19 Rx Lisinopril [Zestril] 5 mg PO DAILY 01/12/19 01/12/19 History metFORMIN [Glucophage] 500 mg PO BID-WM #0 tab 01/12/19 01/12/19 Rx traMADol HCl [Tramadol HCl] 50 mg PO Q4H #21 tablet 01/12/19 Rx - History PMHx: HTN, DM, HLD, NJ s/p 2 ROBERT, hx of ectopic PSHx: L knee arthroscopy, stent placement 12/2018, Laparotomy due to ectopic in Apr 2018 FHx: non contributory Social: endorses 15pack yr hx, currently decreased to 2-3cigarettes/day since discharge on 01/01. Denies alcohol use. Endorses marijuana use - last use / Sun of this week. Denies any other illicit drug use. - Review of Systems General: reports: night sweats. denies: fever/chills, weight/appetite/sleep changes, fatigue Eyes: denies: eye pain, vision changes ENT: denies: nasal congestion, rhinorrhea Respiratory: denies: cough, congestion, shortness of breath, exercise intolerance Cardiovascular: reports: chest pain, edema (to right foot). denies: palpitation Gastrointestinal: reports: nausea, abdominal pain (left flank). denies: vomiting, diarrhea, constipation Genitourinary: denies: incontinence, dysuria, polyuria, discharge Skin: denies: rashes, lesions Musculoskeletal: reports: swelling. denies: pain, tenderness, stiffness Neurological: denies: syncope, seizure, weakness Psychological: denies: anxiety, depression - Vital signs BP: 127/59 HR: 88 RR: 19 Tmax: 98 Pox: 98% on RA Wt: 75.39kg - Physical Exam Constitutional: NAD, awake, alert and oriented, well developed HEENT: normocephalic and atraumatic, PERRLA, EOMI, grossly normal vision, grossly normal hearing, MMM Neck: supple, FROM, trachea midline, no LAD, no JVD, no bruits Chest: no lesions -Chest: TTP left chest Heart: RRR, normal S1/S2, no murmurs/rubs/gallops, pulses present, no edema Lungs: CTAB, no respiratory distress, good air movement, no rales/rhonchi, no wheezing, no retractions Abdomen: soft, non-tender, bowel sounds present, no masses/distention, no hernias -Abdomen: mild left sided CVA tenderness Musculoskeletal: normal structure, normal tone, ROM grossly normal Neurological: no focal deficit, CN II-XII intact, normal sensation Skin: good turgor, capillary refill <2 seconds Psychiatric: normal mood and affect, good judgment and insight, intact recent and remote memory FMR H&P: Results - Labs Result Diagrams: 01/12/19 01:28 01/12/19 01:28 Lab results: WBC 7.7 thou/uL (4.8-10.8) 01/12/19 01:28 Hgb 9.5 g/dL (12.0-16.0) L 01/12/19 01: Hct 29.8 % (36.0-47.0) L 01/12/19 01:28 MCV 83.3 fL (78.0-98.0) 01/12/19 01:28 Plt Count 343 thou/uL (130-400) 01/12/19 01:28 Neutrophils % 59.1 % (42.0-75.0) 01/12/19 01:28 Sodium 139 mmol/L (136-145) 01/12/19 01:28 Potassium 3.8 mmol/L (3.5-5.1) 01/12/19 01:28 Chloride 102 mmol/L (98-107) 01/12/19 01:28 Carbon Dioxide 26 mmol/L (22-29) 01/12/19 01:28 BUN 6 mg/dL (7.0-18.7) L 01/12/19 01:28 Creatinine 0.75 mg/dL (0.6-1.1) 01/12/19 01:28 Glucose 107 mg/dL (70-105) H 01/12/19 01:28 Calcium 9.8 mg/dL (7.8-10.44) 01/12/19 01:28 Total Bilirubin 0.2 mg/dL (0.2-1.2) 01/12/19 01:28 AST 18 U/L (5-34) 01/12/19 01:28 ALT 26 U/L (8-55) 01/12/19 01:28 Alkaline Phosphatase 98 U/L (40-150) 01/12/19 01:28 Serum Total Protein 7.4 g/dL (6.0-8.3) 01/12/19 01:28 Albumin 3.3 g/dL (3.5-5.0) L 01/12/19 01:28 Lipase 54 U/L (8-78) 01/12/19 01:28 FMR H&P: A/P - Problem List (1) Chest pain Current Visit: Yes Status: Acute Code(s): R07.9 - CHEST PAIN, UNSPECIFIED (2) Hx of heart artery stent Current Visit: Yes Status: Acute Code(s): Z95.5 - PRESENCE OF CORONARY ANGIOPLASTY IMPLANT AND GRAFT (3) Elevated d-dimer Current Visit: Yes Status: Acute Code(s): R79.89 - OTHER SPECIFIED ABNORMAL FINDINGS OF BLOOD CHEMISTRY (4) Chronic hypertension Current Visit: No Status: Acute Code(s): I10 - ESSENTIAL (PRIMARY) HYPERTENSION (5) Diabetes Current Visit: No Status: Acute Code(s): E11.9 - TYPE 2 DIABETES MELLITUS WITHOUT COMPLICATIONS - Plan Atypical Chest pain 2/2 likely MSK vs ACS Patient with atypical chest pain w/ hx of ACS s/p stent placement. Trop neg x 2. Relieved with nitro. EKG nml. TTP on exam over left chest. HEART SCORE: 2, CARLO SCORE: 2 = 2.2% 30 day mortality risk. - Will continue to trend trops - Continue to monitor on tele; few PVCs noted, but otherwise nml. - Can consider echo, but likely MSK in etiology - Can consider cards consult due to recent procedure and discharge Elevated D-Dimer Official CTA read pending. No PE seen with unofficial read. - VSS, will continue to monitor RUL infiltrate concern for Pneumonia Official CXR read pending. Patient afebrile. - Procal pending, if positive will start abx for CAP - Will hold off on abx for now HTN - Continue home meds DMII - Will hold metformin 48hrs due to CTA HLD - Continue home meds Hx of drug use - UDS positive for marijuana Dispo: admit to tele, obs; <2 midnights Diet: NPO IVF: LR @ 120mls/hr Case discussed with Dr. Hudson Addendum - Attending - Attending Attestation Date/Time: 01/12/19 9805 I personally evaluated the patient and discussed the management with Dr. Morales I agree with the History, Examination, Assessment and Plan documented above with any addition or exceptions noted below. 43 yo female DM2, HTN and Tobacco use s/p recent drug eluting stent to proximal LAD 2 weeks ago at [facility] transferred from [facility] with chest pain her EKG and troponins negative . Patient tender to chest wall palpation and doubt this represents and ACS or stent obstruction given negative evaluation. Patient with incidental consolidation questionable infiltrate RUL no cough fever chills to suggest PNA. Had positive D-Dimer and CTA ruled out PE at outlying associated facility. Recent surgery for corneal ectopic . Patient s/p left knee ACL reconstruction, Cervical LEEP. Patient has been compliant with ASA/Plavix and statin and coreg. Drug screen corroborates given history of marijuana use. Will place in observation will elect to not start empirical antibiotics for questionable infiltrate and expectant management with f/u CXR 3-4 weeks and deputy chief counsel to S/S PNA and check procalcitonin level for further reassurance.
[2019-01-12] MEDS ORDERED: Lactated Ringer's 1,000 ML IV SCH (06:30)
[2019-01-12 06:40] LABS: Amphetamine Not Detected (NotDetected); Barbiturates Screen Not Detected (NotDetected); Benzodiazepine Screen Not Detected (NotDetected); Cocaine Metabolite Screen Not Detected (NotDetected); Medtox Control Line Valid? VALID (VALID); Medtox Reader # READER 4; Methadone Not Detected (NotDetected); Methamphetamine Not Detected (NotDetected); Opiate Screen Not Detected (NotDetected); Oxycodone Screen Not Detected (NotDetected); Phencyclidine (PCP) Not Detected (NotDetected); THC/Cannabinoid Screen Detected (NotDetected); Tricyclic Screen Not Detected (NotDetected)
[2019-01-12] MEDS: Nitroglycerin 0.4 MG TAB (25 Tab Bottle) SL PRN ×2 (07:09→07:17)
[2019-01-12] MEDS ORDERED: Morphine 4 MG/ML VIAL ONE (07:22)
[2019-01-12] MEDS ORDERED: Morphine 2 MG/ML SYRINGE SLOW IVP SCH (07:45)
[2019-01-12 07:50] LABS: Troponin I 0.016 ng/mL (< 0.028)
--- NOTE | 2019-01-12 07:51 | CT ---
PRELIMINARY REPORT/[facility]/EMERGENCY AFTER HOURS PROCEDURE: EXAM: CT Angiography Chest With Contrast EXAM DATE/TIME: 01/12/2019 2:15 AM CLINICAL HISTORY: 43 years old, female; Pain and abnormal findings; Abnormal diagnostic tests; Elevated d-dimer; Angina and dyspnea; Chest pressure; Prior surgery; Surgery date: <1 month; Surgery type: 2 cardiac stents p laced two weeks ago; Patient HX: Cp, nausea, SOB tonight. Hs of mi and stents placed two weeks ago. E levated ddimer TECHNIQUE: Imaging protocol: Axial computed tomographic angiography images of the chest with intravenous contras t using CT angiography protocol. Coronal and sagittal reformatted images were created and reviewed. 3D rendering: MIP reconstructed images were created and reviewed. Radiation optimization: All CT scans at this facility use at least one of these dose optimization tess hniques: automated exposure control; mA and/or kV adjustment per patient size (includes targeted exam s where dose is matched to clinical indication); or iterative reconstruction. Contrast material: [id number]; Contrast volume: 90 ml; Contrast route: IV; COMPARISON: No relevant prior studies available. FINDINGS: Pulmonary arteries: No pulmonary emboli. Aorta: Unremarkable. No aortic aneurysm. No aortic dissection. Lungs: 4 cm consolidation within the right upper lobe (series 6, image 53), most compatible with pneumonia. Pleural space: Unremarkable. No pneumothorax. No pleural effusion. Heart: Metallic stents within the proximal left anterior descending coronary artery. Lymph nodes: Unremarkable. No enlarged lymph nodes. Bones/joints: Multilevel thoracic spine degenerative changes. Soft tissues: Unremarkable. IMPRESSION: 1. No pulmonary emboli. 2. 4 cm consolidation within the right upper lobe (series 6, image 53), most compatible with pneumoni a. Recommend comparison to previous studies to determine temporal course of development. If not avail able, recommend short-term followup after therapy to ensure resolution of this finding. Thank you for allowing us to participate in the care of your patient. Dictated and Authenticated by: Manoj Alvarez MD 01/12/2019 3:45 AM Central Time ([place] & [place]) FINAL REPORT EMERGENT AFTER HOURS CTA OF THE CHEST WITH CONTRAST: FINDINGS/IMPRESSION: I agree with the findings and impression given in the preliminary report per [facility] physician. 1. No evidence of pulmonary thromboembolism. 2. Right upper lobe consolidation.
[2019-01-12] MEDS ORDERED: metFORMIN 500 MG TAB PO SCH (08:00)
[2019-01-12] MEDS ORDERED: Carvedilol 6.25 MG TAB PO SCH (08:00)
[2019-01-12 08:25] LABS: Pregnancy Test - Urine (BHCG) Negative (Negative)
[2019-01-12 08:26] LABS: Pregu Control Background? CLEAR/WHITE (CLR/WHITE); Pregu Control Bar Appear? YES (CONTROL BAR); Specific Gravity Greater than 1.060 (1.002-1.036)
[2019-01-12] MEDS ORDERED: Lisinopril 5 MG TAB PO SCH (09:00)
[2019-01-12] MEDS ORDERED: Enoxaparin Sodium 40 MG/0.4 ML SYRINGE SC SCH (09:00)
[2019-01-12] MEDS ORDERED: Clopidogrel Bisulfate 75 MG TAB PO SCH (09:00)
[2019-01-12] MEDS ORDERED: Aspirin 81 mg Enteric Coated Tablet PO SCH (09:00)
[2019-01-12] MEDS ORDERED: Tamsulosin HCl 0.4 MG CAP PO SCH (09:00)
--- NOTE | 2019-01-12 09:19 | RAD ---
PORTABLE CHEST: HISTORY: Pneumonia. COMPARISON: 01/03/2019 study. FINDINGS: Somewhat nodular mid lung field infiltrate on the right is again demonstrated. It is similar in appe arance to the previous examination. It still has more of an infiltrative-type appearance than mass, but continued followup to resolution is recommended. IMPRESSION: Right upper lobe infiltrate. Continued followup is recommended. POS: [facility]
[2019-01-12 13:12] VITALS: BP 128/74; TEMP 98.3
[2019-01-12] MEDS ORDERED: Iopamidol 370 76% 100 ML VIAL ONE (13:53)
[2019-01-12] MEDS ORDERED: Atorvastatin Calcium 40 MG TAB PO SCH (21:00)
--- NOTE | 2019-01-13 11:17 | DIS ---
DATE OF ADMISSION: 01/12/2019 DATE OF DISCHARGE: 01/12/2019 RESIDENT: Mitch Rizo MD. ADMITTING ATTENDING: Jeremy Hudson MD DISCHARGE ATTENDING: Jeremy Hudson MD CONSULTS: Cardiology, Dr. Campa. PROCEDURES: None. PRIMARY DIAGNOSIS: Atypical chest pain 2/2 Musculoskeletal pain vs. Acute Coronary Syndrome SECONDARY DIAGNOSES: 1. Right upper lobe infiltrate concerning for pneumonia. 2. Hypertension. 3. Diabetes. 4. Hyperlipidemia. 5. History of drug abuse. DISCHARGE MEDICATIONS: Home medications: 1. Aspirin 81 mg daily. 2. Atorvastatin 40 mg p.o. at bedtime. 3. Carvedilol 6.25 mg p.o. b.i.d. 4. Clopidogrel 75 mg p.o. daily. 5. Lisinopril 5 mg p.o. daily. 6. Nitroglycerin 0.4 mg tablet q.5 minutes p.r.n. for chest pain. 7. Metformin 500 mg p.o. b.i.d. Prescription given in the hospital: Tramadol 50 mg tablet p.o. q.4 to 6 hours p.r.n. for chest pain. Discontinued medication: Tamsulosin. HOSPITAL COURSE: Ms. Martínez is a 43-year-old female, who presented to the ER with a chief complaint of chest pain. Past medical history is significant for recent CT, status post 2 drug-eluting stent placements on 12/28/2018, and repeat catheterization on 12/31/2018, and discharged on 01/01/2019. Her chronic conditions include hypertension and diabetes. The patient symptoms began around midnight with chest pain, that was associated with left jaw and left arm pain. She states the pain is difficult to describe. It does not feel like the chest pain she had with her previous CT. She states the pain is more dull and not sharp. She states the pain is located in her left chest and does not radiate. She does have some nausea, but no vomiting. Endorses some right lower extremity swelling to her right leg recently. Endorses night sweats over the past few nights. Denies any fevers, chills, or shortness of breath. Denies diaphoresis. States nothing exacerbated the pain including exertion or position. She is able to walk a block or more without getting short of breath or chest pain. Nitro did improve her pain some. She states her pain is maybe 3/10 currently, initially 8/10. 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 Boone. Troponins were negative on admission. Pain was reproducible with palpation. We discussed the patient with Dr. Campa, and he agrees that her cardiac enzymes would have been positive and her EKG would be abnormal. Chest x-ray and CTA were performed and showed a right upper lobe infiltrate. We are not concerned at this time for pneumonia considering she is not tachycardic, she has no fever, no cough or shortness of breath, and she is saturating well on room air. The plan was discussed with the patient, and the patient was in agreement that she would be discharged home today and follow up with her primary care who she had an appt with in 3 weeks for an abnormal chest x-ray, which should be repeated. DISPOSITION: Stable. DISCHARGE INSTRUCTIONS: 1. LOCATION: Discharged home. 2. DIET: Heart-healthy. 3. ACTIVITY: As tolerated. 4. FOLLOWUP: The patient was told to call PCP tomorrow 01/13/19.The patient has an appointment with her PCP in 3 weeks, and chest x-ray will be repeated at that time for resolution of infiltrate. Job ID: [id number] MTDD
== END 2019-01-12 14:00 | disposition home or self-care (01) ==
LOC: SCSER 01:07 → 2NO 03:15
PROVIDERS: ADMIT Family Medicine; ATTEND Family Medicine
DX: R07.89 Other chest pain (principal); R91.8 Other nonspecific abnormal finding of lung field; I10 Essential (primary) hypertension; E11.9 Type 2 diabetes mellitus without complications; E78.5 Hyperlipidemia, unspecified; F12.10 Cannabis abuse, uncomplicated; R79.1 Abnormal coagulation profile; I25.2 Old myocardial infarction; F17.210 Nicotine dependence, cigarettes, uncomplicated; Z95.5 Presence of coronary angioplasty implant and graft; Z79.84 Long term (current) use of oral hypoglycemic drugs; Z79.82 Long term (current) use of aspirin; Z79.899 Other long term (current) drug therapy
CPT/HCPCS: 36415; 36416; 71045; 71275; 80053; 80306; 81025; 83690; 84145; 84484; 85025; 85379; 93005; 96360; 96361; 96374; G0378; J2270; Q9967

== ENCOUNTER 2019-05-17 14:40 | Emergency (ER) | payer OTHER | END 2019-05-17 15:29 | disposition left against medical advice (07) | LOC: ERS 14:40 | DX: Z53.21 Procedure and treatment not carried out due to patient leaving prior to being seen by health care provider (principal) | CPT/HCPCS: 93005 ==

== ENCOUNTER 2019-05-17 17:05 | Emergency (ER) | payer OTHER ==
[~2019-05-17 17:05] MED LIST changes: -Heparin 10,000 UNITS/1 ML VIAL ONE; -Iopamidol 370 76% 100 ML VIAL ONE; -Iopamidol 370 76% 50 ML VIAL FS ONE; +Iopamidol-370 76% 500 ML 1 ML ONE; -Nitroglycerin 0.4 MG TAB (25 Tab Bottle) ONE; -Sodium Chloride 0.9% Irrigation 1000 ML BOT ONE
--- NOTE | 2019-05-17 17:26 | RAD ---
XR Chest Pa Lat STANDARD History: Chest pain Comparison: Radiograph January 12, 2019. CT angiogram of the chest December 2018 Findings: Interval increased confluence of the right upper lobe nodular opacity. Remainder the lungs are clear. No pneumothorax. Impression: Increased confluence right upper lobe opacity concerning for underlying mass. Bronchoscop ic evaluation recommended.
[2019-05-17 18:24] LABS: Hemoglobin 8.6 g/dL (12.0-16.0); Mean Corpuscular HGB CONC 30.3 g/dL (32.0-36.0); Mean Corpuscular Hemoglobin 21.4 pg (27.0-31.0); Mean Corpuscular Volume 70.7 fL (78.0-98.0); Mean Platelet Volume 8.6 fL (7.4-10.4); Platelet Count 545 thou/uL (130-400); RBC Distribution Width 17.4 % (11.5-14.5); Red Blood Cell (RBC) Count 4.01 mill/uL (4.20-5.40); White Blood Cell (WBC) Count 12.3 thou/uL (4.8-10.8)
[2019-05-17 18:36] LABS: ALT (SGPT) Less than 7 U/L (8-55); AST (SGOT) 8 U/L (5-34); Albumin 3.7 g/dL (3.5-5.0); Alkaline Phosphatase 99 U/L (40-110); Anion Gap 12 mmol/L (10-20); BUN (Urea Nitrogen) 6 mg/dL (7.0-18.7); Bilirubin, Total 0.2 mg/dL (0.2-1.2); CK (CPK) 37 U/L (29-168); Calc. Creatinine Clearance 0 mL/min (70-130); Calcium 9.5 mg/dL (7.8-10.44); Carbon Dioxide 24 mmol/L (22-29); Chloride 104 mmol/L (98-107); Estimated GFR-MDRD Greater than 90; Globulin 4.2 g/dL (2.4-3.5); Glucose 106 mg/dL (70-105); Potassium 4.1 mmol/L (3.5-5.1); Protein, Total 7.9 g/dL (6.0-8.3); Sodium 136 mmol/L (136-145)
[2019-05-17 18:41] LABS: Band 6 % (5-11); Elliptocytes SLIGHT = 2-5 cells (100X) (0-1/hpf); Hypochromia SLIGHT = 6-15 cells (100X) (0-5/hpf); Lymphocytes 13 % (21-51); MDiff Complete? YES; Microcytosis SLIGHT = 6-15 cells (100X) (0-5/hpf); Monocytes 2 % (0-10); Neutrophil 71 % (42-75); Ovalocytes SLIGHT = 2-5 cells (100X) (0-1/hpf); Platelet Morphology Comment Appears Increased; Poikilocytosis SLIGHT = 6-15 cells (100X) (0-5/hpf); Polychromasia SLIGHT = 2-3 cells (100X) (0-2/hpf); Reactive Lymphocytes 8 % (0-10); Schistocytes SLIGHT = 2-5 cells (100X) (0-1/hpf); Stomatocytes SLIGHT = 2-5 cells (100X) (0-1/hpf); Target Cells SLIGHT = 2-5 cells (100X) (0-1/hpf); Tear Drops SLIGHT = 2-5 cells (100X) (0-1/hpf)
[2019-05-17 19:10] LABS: BHCG - Serum Negative (NEGATIVE); Pregs Control Background? CLEAR/WHITE (CLR/WHITE); Pregs Control Bar Appear? YES (CONTROL BAR)
--- NOTE | 2019-05-17 20:29 | CT ---
CTA Angio Chest W WO Con History: Chest pain Comparison: Radiograph same day. CT examination December 2018 Findings: CT angiogram of the chest performed after the intravenous administration of contrast. 3-D r endering provided. There is attenuation of the right upper lobe pulmonary arteries due to enlarging mass. There is fulln ess of the hilum and right infrahilar soft tissues. No intraluminal filling defect. Aortic contour is nonaneurysmal. Right paratracheal lymph node measures 12 mm in short axis, previous ly not enlarged. Abnormal increased density of the right upper lobe masslike consolidation with numerous peripheral sa tellite nodules as well as interstitial thickening. There is superior retraction of the minor fissure. There is a nodule crossing the minor fissure into the right middle lobe. Left lung is relatively clear. Upper abdomen is unremarkable. Impression: 1. Increased consolidative process in the right upper lobe highly suggestive of malignancy given its enlargement, attenuation of the pulmonary vessels in the right upper lobe, as well as hilar adenopathy and right paratracheal adenopathy. There are also adjacent satellite nodules and periphera l septal thickening concerning for lymphangitic spread of tumor. Pulmonary consultation with bronchoscopy is recommended. 2. No pulmonary arterial filling defect.
[2019-05-17 20:54] LABS: Bilirubin Negative (Negative); Blood, Urine Negative (Negative); Clarity Clear (Clear); Glucose, Urine (Dipstick) Normal (Negative); Leukocyte Negative Leu/uL (Negative); Nitrite Negative (Negative); Protein, Urine (Dipstick) 10 mg/dL (Neg-Trace)
== END 2019-05-17 22:12 | disposition home or self-care (01) ==
LOC: ERS 17:05
DX: R91.8 Other nonspecific abnormal finding of lung field (principal); F17.210 Nicotine dependence, cigarettes, uncomplicated; E11.9 Type 2 diabetes mellitus without complications; E78.5 Hyperlipidemia, unspecified; I10 Essential (primary) hypertension
CPT/HCPCS: 36415; 71046; 71275; 80053; 81003; 82550; 83880; 84484; 84703; 85025; 85379; 93005; Q9967

== ENCOUNTER 2019-05-25 02:47 | Emergency (ER) | payer OTHER ==
[2019-05-25] MEDS ORDERED: Ketorolac Tromethamine 60 MG/2 ML VIAL ONE (03:08)
== END 2019-05-25 03:07 | disposition home or self-care (01) ==
LOC: ERS 02:47
DX: M54.6 Pain in thoracic spine (principal); R91.8 Other nonspecific abnormal finding of lung field; E11.9 Type 2 diabetes mellitus without complications; E78.5 Hyperlipidemia, unspecified; I10 Essential (primary) hypertension; I25.2 Old myocardial infarction; F17.210 Nicotine dependence, cigarettes, uncomplicated; Z87.442 Personal history of urinary calculi; Z79.891 Long term (current) use of opiate analgesic; Z79.899 Other long term (current) drug therapy; Z79.84 Long term (current) use of oral hypoglycemic drugs
CPT/HCPCS: 96372; 99283; J1885

== ENCOUNTER 2019-06-01 09:08 | Emergency (ER) | payer OTHER ==
[2019-06-01] MEDS ORDERED: Ketorolac Tromethamine 60 MG/2 ML VIAL ONE (10:13)
--- NOTE | 2019-06-01 10:24 | RAD ---
EXAM: Single view of the chest HISTORY: Chest pain in the right chest COMPARISON: 01/12/2019 FINDINGS: Single view of the chest shows a normal sized cardiomediastinal silhouette. Atelectasis is seen in the left lung base. An infiltrate is seen in the inferior aspect of the right upper lobe. The bones are unremarkable. IMPRESSION: Right upper lobe pneumonia.
[2019-06-01 10:49] LABS: ALT (SGPT) Less than 7 U/L (8-55); AST (SGOT) 7 U/L (5-34); Albumin 3.2 g/dL (3.5-5.0); Alkaline Phosphatase 85 U/L (40-110); Anion Gap 11 mmol/L (10-20); BUN (Urea Nitrogen) 7 mg/dL (7.0-18.7); Bilirubin, Total Less than 0.2 mg/dL (0.2-1.2); Calc. Creatinine Clearance 0 mL/min (70-130); Carbon Dioxide 26 mmol/L (22-29); Chloride 104 mmol/L (98-107); Estimated GFR-MDRD Greater than 90; Globulin 3.9 g/dL (2.4-3.5); Glucose 108 mg/dL (70-105); Potassium 3.9 mmol/L (3.5-5.1); Protein, Total 7.1 g/dL (6.0-8.3); Sodium 137 mmol/L (136-145)
[2019-06-01 11:03] LABS: #Basophils 0.1 thou/uL (0.0-0.2); #Eosinphils 0.1 thou/uL (0.0-0.7); #Lymphocytes 2.5 thou/uL (1.20-3.40); #Monocytes 0.7 thou/uL (0.11-0.59); #Neutrophils 8.3 thou/uL (1.40-6.50); %Basophils 0.7 % (0.0-1.0); %Lymphocytes 21.1 % (21.0-51.0); %Monocytes 5.7 % (0.0-10.0); %Neutrophils 71.5 % (42.0-75.0); Anisocytosis MODERATE=16-30 cells (100X) (0-5/hpf); Hemoglobin 7.1 g/dL (12.0-16.0); Hypochromia SLIGHT = 6-15 cells (100X) (0-5/hpf); MDiff Complete? YES; Mean Corpuscular HGB CONC 29.4 g/dL (32.0-36.0); Mean Corpuscular Hemoglobin 20.7 pg (27.0-31.0); Mean Corpuscular Volume 70.3 fL (78.0-98.0); Mean Platelet Volume 8.2 fL (7.4-10.4); Ovalocytes SLIGHT = 2-5 cells (100X) (0-1/hpf); Platelet Count 557 thou/uL (130-400); RBC Distribution Width 17.6 % (11.5-14.5); Red Blood Cell (RBC) Count 3.42 mill/uL (4.20-5.40); White Blood Cell (WBC) Count 11.7 thou/uL (4.8-10.8)
== END 2019-06-01 11:06 | disposition home or self-care (01) ==
LOC: ERS 09:08
DX: R07.89 Other chest pain (principal); R91.8 Other nonspecific abnormal finding of lung field; E11.9 Type 2 diabetes mellitus without complications; E78.5 Hyperlipidemia, unspecified; I10 Essential (primary) hypertension; I25.2 Old myocardial infarction; F17.210 Nicotine dependence, cigarettes, uncomplicated; Z79.899 Other long term (current) drug therapy; Z79.84 Long term (current) use of oral hypoglycemic drugs; Z79.82 Long term (current) use of aspirin; Z79.01 Long term (current) use of anticoagulants
CPT/HCPCS: 36415; 71045; 80053; 84484; 85025; 93005; 96372; J1885

== ENCOUNTER 2019-06-24 15:37 | Emergency (ER) | payer OTHER ==
[2019-06-24 16:12] LABS: #Eosinphils 0.1 thou/uL (0.0-0.7); #Lymphocytes 2.6 thou/uL (1.20-3.40); #Monocytes 0.5 thou/uL (0.11-0.59); #Neutrophils 7.5 thou/uL (1.40-6.50); %Basophils 0.3 % (0.0-1.0); %Eosinophils 0.9 % (0.0-10.0); %Lymphocytes 24.4 % (21.0-51.0); %Monocytes 4.5 % (0.0-10.0); Hemoglobin 9.8 g/dL (12.0-16.0); Mean Corpuscular HGB CONC 31.7 g/dL (32.0-36.0); Mean Corpuscular Hemoglobin 23.2 pg (27.0-31.0); Mean Corpuscular Volume 73.1 fL (78.0-98.0); Mean Platelet Volume 8.5 fL (7.4-10.4); Platelet Count 635 thou/uL (130-400); RBC Distribution Width 21.2 % (11.5-14.5); Red Blood Cell (RBC) Count 4.24 mill/uL (4.20-5.40); White Blood Cell (WBC) Count 10.7 thou/uL (4.8-10.8)
[2019-06-24 16:34] LABS: ALT (SGPT) 9 U/L (8-55); AST (SGOT) 9 U/L (5-34); Alkaline Phosphatase 92 U/L (40-110); Anion Gap 12 mmol/L (10-20); BUN (Urea Nitrogen) 7 mg/dL (7.0-18.7); Bilirubin, Total Less than 0.2 mg/dL (0.2-1.2); Calc. Creatinine Clearance 0 mL/min (70-130); Calcium 8.9 mg/dL (7.8-10.44); Carbon Dioxide 22 mmol/L (22-29); Chloride 106 mmol/L (98-107); Estimated GFR-MDRD Greater than 90; Globulin 4.4 g/dL (2.4-3.5); Glucose 126 mg/dL (70-105); Potassium 3.6 mmol/L (3.5-5.1); Protein, Total 7.4 g/dL (6.0-8.3); Sodium 136 mmol/L (136-145)
--- NOTE | 2019-06-24 16:40 | RAD ---
EXAM: Chest 2 views: HISTORY: Chest pain COMPARISON: 05/17/2019 FINDINGS: There is a normal-sized cardiomediastinal silhouette. Consolidation is seen in the inferior aspect of the right upper lobe. The bones are unremarkable. IMPRESSION: Right upper lobe pneumonia versus mass. This has not changed compared to the prior radiograph. A ches t CT is recommended for further evaluation.
[2019-06-24] MEDS ORDERED: Ondansetron PF 4 MG/2 ML Vial ONE (17:27)
[2019-06-24] MEDS ORDERED: Morphine 4 MG/ML VIAL ONE (17:27)
[2019-06-24] MEDS ORDERED: Ketorolac Tromethamine 30 MG/ML VIAL ONE (17:27)
== END 2019-06-24 18:36 | disposition home or self-care (01) ==
LOC: ERS 15:37
DX: R91.8 Other nonspecific abnormal finding of lung field (principal); M25.511 Pain in right shoulder; I10 Essential (primary) hypertension; E11.9 Type 2 diabetes mellitus without complications; E78.5 Hyperlipidemia, unspecified; F17.210 Nicotine dependence, cigarettes, uncomplicated; Z79.84 Long term (current) use of oral hypoglycemic drugs; Z79.82 Long term (current) use of aspirin; Z79.899 Other long term (current) drug therapy
CPT/HCPCS: 36415; 71046; 80053; 84484; 85025; 93005; 96374; 96375; J1885; J2270; J2405

== ENCOUNTER 2019-08-05 06:22 | Emergency (ER) | payer OTHER, SELFPAY ==
--- NOTE | 2019-08-05 09:24 | ULT ---
RIGHT UPPER EXTREMITY VENOUS ULTRASOUND WITH DOPPLER: HISTORY: Right upper extremity pain. COMPARISON: None. TECHNIQUE: Grayscale, color flow, Doppler imaging spectral waveform analysis performed of the right upper extrem ity venous system. FINDINGS: There is an incidental large lymph node in the mid right humerus soft tissues, adjacent to the brachi al artery measuring 0.6 cm. There is compressibility and flow in the internal jugular vein. There is flow in the subclavian vein. There is compressibility and flow axillary vein, brachial vein, basilic vein, ulnar vein and cephalic vein. There is abnormal echotexture along the course of a small tributary vein that dumped i nto the cephalic vein. Though this vein does demonstrate flow and compressibility, the possibility of a partial thrombosis cannot be excluded. This abnormal echotexture corresponds to the region of po int tenderness and focal palpable ridge of soft tissue. IMPRESSION: 1. Enlarged right upper extremity lymph node, presumed to be reactive. 2. Possible partial thrombosis of a tributary vein that dumps into the cephalic vein. Results of the study discussed with Dr. Gibbons 08/05/2019 at 9:23 AM Code CR Transcribed Date/Time: 08/05/2019 9:43 AM
== END 2019-08-05 10:05 | disposition home or self-care (01) ==
LOC: ERS 06:22
DX: I82.621 Acute embolism and thrombosis of deep veins of right upper extremity (principal); I80.8 Phlebitis and thrombophlebitis of other sites; E11.9 Type 2 diabetes mellitus without complications; E78.5 Hyperlipidemia, unspecified; I10 Essential (primary) hypertension; F17.210 Nicotine dependence, cigarettes, uncomplicated; Z79.899 Other long term (current) drug therapy; Z79.82 Long term (current) use of aspirin; Z79.84 Long term (current) use of oral hypoglycemic drugs; Z71.6 Tobacco abuse counseling
CPT/HCPCS: 99406

== ENCOUNTER 2019-09-01 15:28 | Observation (INO) | payer OTHER, SELFPAY ==
[2019-09-01 15:59] LABS: #Basophils 0.2 thou/uL (0.0-0.2); #Eosinphils 0.1 thou/uL (0.0-0.7); #Lymphocytes 2.1 thou/uL (1.20-3.40); #Monocytes 0.3 thou/uL (0.11-0.59); #Neutrophils 7.3 thou/uL (1.40-6.50); %Basophils 1.7 % (0.0-1.0); %Eosinophils 0.9 % (0.0-10.0); %Lymphocytes 21.2 % (21.0-51.0); %Monocytes 2.8 % (0.0-10.0); %Neutrophils 73.5 % (42.0-75.0); Hemoglobin 9.2 g/dL (12.0-16.0); Mean Corpuscular HGB CONC 30.3 g/dL (32.0-36.0); Mean Corpuscular Hemoglobin 23.8 pg (27.0-31.0); Mean Corpuscular Volume 78.5 fL (78.0-98.0); Mean Platelet Volume 9.7 fL (7.4-10.4); Platelet Count 443 thou/uL (130-400); RBC Distribution Width 22.1 % (11.5-14.5); Red Blood Cell (RBC) Count 3.87 mill/uL (4.20-5.40); White Blood Cell (WBC) Count 9.9 thou/uL (4.8-10.8)
--- NOTE | 2019-09-01 16:08 | RAD ---
Chest 2 views HISTORY: Chest pain. COMPARISON: 06/24/2019. FINDINGS: Cardiac silhouette remains upper limits of normal in size. Pulmonary vasculature is unremar kable. Masslike infiltrate within the right upper lobe is again demonstrated. Slight enlargement since the 06/24/2019 exam. Lungs are otherwise hyperinflated. No pleural fluid or evidence of pneumot horax. There are degenerative changes of the left shoulder apparent. IMPRESSION: Continued enlargement of right upper lobe masslike infiltrate. Likely neoplasm. Please co nsider pulmonary evaluation.
[2019-09-01 16:17] LABS: ALT (SGPT) Less than 7 U/L (8-55); AST (SGOT) 7 U/L (5-34); Albumin 3.1 g/dL (3.5-5.0); Alkaline Phosphatase 98 U/L (40-110); Anion Gap 9 mmol/L (10-20); BUN (Urea Nitrogen) 6 mg/dL (7.0-18.7); Bilirubin, Total 0.2 mg/dL (0.2-1.2); Calc. Creatinine Clearance 0 mL/min (70-130); Calcium 8.9 mg/dL (7.8-10.44); Carbon Dioxide 29 mmol/L (22-29); Chloride 106 mmol/L (98-107); Estimated GFR-MDRD Greater than 90; Globulin 4.2 g/dL (2.4-3.5); Glucose 114 mg/dL (70-105); Potassium 3.7 mmol/L (3.5-5.1); Protein, Total 7.3 g/dL (6.0-8.3); Sodium 140 mmol/L (136-145)
[2019-09-01 16:26] LABS: Anisocytosis MODERATE=16-30 cells (100X) (0-5/hpf); Elliptocytes SLIGHT = 2-5 cells (100X) (0-1/hpf); Hypochromia SLIGHT = 6-15 cells (100X) (0-5/hpf); MDiff Complete? YES; Ovalocytes SLIGHT = 2-5 cells (100X) (0-1/hpf); Platelet Morphology Comment Appears Increased; Polychromasia SLIGHT = 2-3 cells (100X) (0-2/hpf); Target Cells SLIGHT = 2-5 cells (100X) (0-1/hpf)
[2019-09-01] MEDS ORDERED: Aspirin Chewable 81 MG TAB ONE (16:55)
[2019-09-01] MEDS ORDERED: Nitroglycerin 2% Ointment 1 INCH/1 GM Packet ONE (16:55)
--- NOTE | 2019-09-01 19:47 | PDOC.FPRHP ---
- Allergies/Adverse Reactions Allergies Allergy/AdvReac Type Severity Reaction Status Date / Time No Known Allergies Allergy Verified 01/12/19 05:21 - Home Medications Medication Instructions Recorded Confirmed Type Aspirin [Ecotrin Low Strength] 81 mg PO DAILY #100 tab 01/01/19 01/12/19 Rx Atorvastatin Calcium [Lipitor] 40 mg PO HS #30 tab 01/01/19 01/12/19 Rx Carvedilol [Coreg] 6.25 mg PO BID-WM #60 tab 01/01/19 01/12/19 Rx Clopidogrel Bisulfate [Plavix] 75 mg PO DAILY #30 tab 01/01/19 01/12/19 Rx Nitroglycerin [Nitrostat] 0.4 mg SL Q5MIN PRN #1 bot 01/01/19 01/12/19 Rx Lisinopril [Zestril] 5 mg PO DAILY 01/12/19 01/12/19 History metFORMIN [Glucophage] 500 mg PO BID-WM #0 tab 01/12/19 01/12/19 Rx traMADol HCl [Tramadol HCl] 50 mg PO Q4H #21 tablet 01/12/19 Rx - History PMHx: DM, HLD, HTN, STEMI, CABG x2, Stent x 2, HFrEF 40%, Hx of drug abuse PSHx: FHx: Social: - Vital signs BP: [] HR: [] RR: [] Tmax: [] Pox: []% on [] Wt: [] FMR H&P: Results - Labs Result Diagrams: 09/01/19 15:46 09/01/19 15:46 Lab results: WBC 9.9 thou/uL (4.8-10.8) 09/01/19 15:46 Hgb 9.2 g/dL (12.0-16.0) L 09/01/19 15:46 Hct 30.3 % (36.0-47.0) L 09/01/19 15:46 MCV 78.5 fL (78.0-98.0) 09/01/19 15:46 Plt Count 443 thou/uL (130-400) H 09/01/19 15:46 Neutrophils % 73.5 % (42.0-75.0) 09/01/19 15:46 Sodium 140 mmol/L (136-145) 09/01/19 15:46 Potassium 3.7 mmol/L (3.5-5.1) 09/01/19 15:46 Chloride 106 mmol/L (98-107) 09/01/19 15:46 Carbon Dioxide 29 mmol/L (22-29) 09/01/19 15:46 BUN 6 mg/dL (7.0-18.7) L 09/01/19 15:46 Creatinine 0.70 mg/dL (0.6-1.1) 09/01/19 15:46 Glucose 114 mg/dL (70-105) H 09/01/19 15:46 Calcium 8.9 mg/dL (7.8-10.44) 09/01/19 15:46 Total Bilirubin 0.2 mg/dL (0.2-1.2) 09/01/19 15:46 AST 7 U/L (5-34) 09/01/19 15:46 ALT Less than 7 U/L (8-55) L 09/01/19 15:46 Alkaline Phosphatase 98 U/L (40-110) 09/01/19 15:46 Serum Total Protein 7.3 g/dL (6.0-8.3) 09/01/19 15:46 Albumin 3.1 g/dL (3.5-5.0) L 09/01/19 15:46 Lipase 16 U/L (8-78) 09/01/19 16:46 FMR H&P: A/P - Plan Pt is a 44 yo here for typical cp: # Typical chest pain - admit to tele, obs - trend trops - mail order sorter is Dr. Purcell # CAD # CABG x 2, Stents placed in 01/10 including LAD - continue home medications # DM II - continue home meds # HLD - continue home meds # Htn - continue home meds # R Upper Lung Lesion - consider pulm consult for bx Fluids: Diet: HH VTE: Lovenox Code: Dispo: Admit to tele obs FMR H&P: Upper Level - Plan Date/Time: 09/01/191946 I, [], have evaluated this patient and agree with findings/plan as outlined by internet sales director resident. Pertinent changes/additions are listed here.
--- NOTE | 2019-09-01 19:54 | RAD ---
2 views right forearm: 09/01/2019 COMPARISON: None HISTORY: Pain FINDINGS: No fracture or dislocation. No radiopaque foreign body or subcutaneous gas. IMPRESSION: No acute findings.
--- NOTE | 2019-09-06 12:22 | EKG ---
Test Reason : Blood Pressure : / mmHG Vent. Rate : 071 BPM Atrial Rate : 071 BPM P-R Int : 138 ms QRS Dur : 078 ms QT Int : 394 ms P-R-T Axes : 051 -63 022 degrees QTc Int : 428 ms Normal sinus rhythm Possible Left atrial enlargement Left axis deviation Low voltage QRS Inferior infarct , age undetermined Cannot rule out Anterior infarct , age undetermined Abnormal ECG Confirmed by FAWN LUCAS ([id number]), acquisitions editor MOHIT CASTRO ([id number]) on 09/06/2019 12:22:29 PM Referred By: Confirmed By:FAWN Rivera
== END 2019-09-01 21:06 | disposition home or self-care (01) ==
LOC: ERS 15:28 → ERHOLD 19:48
PROVIDERS: ADMIT Family Medicine; ATTEND Family Medicine
DX: R07.9 Chest pain, unspecified (principal); M79.601 Pain in right arm; E11.9 Type 2 diabetes mellitus without complications; E78.5 Hyperlipidemia, unspecified; I10 Essential (primary) hypertension; I25.2 Old myocardial infarction; F17.210 Nicotine dependence, cigarettes, uncomplicated; Z87.442 Personal history of urinary calculi; Z98.890 Other specified postprocedural states; Z95.5 Presence of coronary angioplasty implant and graft; Z79.899 Other long term (current) drug therapy; Z79.82 Long term (current) use of aspirin
CPT/HCPCS: 36415; 71046; 80053; 83690; 83880; 84484; 85025; 93005; 96360; 96361

== ENCOUNTER 2022-10-19 10:33 | Emergency (ER) | payer OTHER ==
[2022-10-19 11:13] LABS: Mean Corpuscular HGB CONC 31.4 g/dL (32.0-36.0); Mean Corpuscular Hemoglobin 29.2 pg (27.0-31.0); Mean Corpuscular Volume 92.8 fl (78.0-98.0); Mean Platelet Volume 9.4 fL (7.4-10.4); Platelet Count 202 10x3/uL (130-400); RBC Distribution Width 13.6 % (11.5-14.5); Red Blood Cell (RBC) Count 5.48 mill/uL (4.20-5.40); White Blood Cell (WBC) Count 7.3 10x3/uL (4.8-10.8)
[2022-10-19 11:35] LABS: Lymphocytes 38 % (21-51); MDiff Complete? YES; Monocytes 5 % (0-10); Neutrophil 56 % (42-75); Platelet Morphology Comment Appears Adequate; RBC Morphology Normal
[2022-10-19 11:43] LABS: ALT (SGPT) 7 U/L (8-55); AST (SGOT) 13 U/L (5-34); Albumin 4.5 g/dL (3.5-5.0); Alkaline Phosphatase 122 U/L (40-110); Anion Gap 15 mmol/L (10-20); BUN (Urea Nitrogen) 11 mg/dL (7.0-18.7); Bilirubin, Total 0.3 mg/dL (0.2-1.2); Calc. Creatinine Clearance 0 mL/min (70-130); Calcium 10.9 mg/dL (7.8-10.44); Carbon Dioxide 23 mmol/L (22-29); Chloride 101 mmol/L (98-107); Estimated GFR 63; Glucose 133 mg/dL (70-105); Potassium 3.5 mmol/L (3.5-5.1); Protein, Total 8.5 g/dL (6.0-8.3); Sodium 135 mmol/L (136-145)
[2022-10-19] MEDS ORDERED: Aspirin Chewable 81 MG TAB ONE (12:23)
[2022-10-19] MEDS ORDERED: Nitroglycerin 2% Ointment 1 INCH/1 GM Packet ONE (12:23)
[2022-10-19] MEDS ORDERED: Famotidine/PF 20 mg/2ml Vial ONE (12:35)
[2022-10-19] MEDS ORDERED: Metoclopramide HCl 10 MG/2 ML VIAL ONE (12:35)
[2022-10-19 14:36] LABS: Troponin I Less than 0.010 ng/mL (< 0.028)
== END 2022-10-19 15:22 | disposition left against medical advice (07) ==
LOC: ERS 10:33
DX: R07.9 Chest pain, unspecified (principal); E83.52 Hypercalcemia; R94.5 Abnormal results of liver function studies; R11.2 Nausea with vomiting, unspecified; E11.9 Type 2 diabetes mellitus without complications; E78.5 Hyperlipidemia, unspecified; I10 Essential (primary) hypertension; F17.210 Nicotine dependence, cigarettes, uncomplicated; Z79.82 Long term (current) use of aspirin; Z79.899 Other long term (current) drug therapy; Z79.84 Long term (current) use of oral hypoglycemic drugs
CPT/HCPCS: 36415; 71045; 80053; 84484; 85025; 93005; 96374; 96375; J2765; S0028